=== PATIENT | female | born 1970 | race Caucasian/White ===

== ENCOUNTER → 2016-06-20 | Outpatient (CLI) | payer OTHER | END | disposition home or self-care (01) | LOC: LABWHC1 08:24 | PROVIDERS: ATTEND Internal Medicine | DX: E27.49 Other adrenocortical insufficiency (principal); R53.83 Other fatigue | CPT/HCPCS: 36415; 82533 ==

== ENCOUNTER → 2016-08-24 | Outpatient (CLI) | payer OTHER | END | disposition home or self-care (01) | LOC: LABWHC1 10:16 | PROVIDERS: ATTEND Internal Medicine | DX: E27.49 Other adrenocortical insufficiency (principal) | CPT/HCPCS: 36415; 82533 ==

== ENCOUNTER → 2016-09-26 | Outpatient (CLI) | payer OTHER ==
[2016-09-26 08:14] LABS: Basophils # (A) 0.1 k/uL (0-0.2); Basophils % (A) 1 %; CH 31.5; CHCM 31.2; Eosinophils # (A) 0.3 k/uL (0-0.7); Eosinophils % (A) 2 %; HCT 51.7 % (34.0-46.0); HDW 2.67; Hypochromasia Slight; Luc # (Auto) 0.21; Luc % (Auto) 2; Lymphocytes # (A) 2.7 k/uL (1.0-4.8); Lymphocytes % (A) 26 %; MCH 31.3 pg (25.0-35.0); MCHC 30.9 g/dL (31.0-37.0); MCV 101.3 fL (80.0-100.0); Macrocytosis Slight; Mean Platelet Volume 8.3; Monocytes # (A) 0.5 k/uL (0-1.0); Monocytes % (A) 5 %; Neutrophils # (A) 6.6 k/uL (1.3-7.7); Neutrophils % (A) 64 %; RBC 5.11 m/uL (3.80-5.40); RDW 13.8 % (11.5-15.5); WBC 10.4 k/uL (3.8-10.6); WBC (Perox) 10.34
[2016-09-26 11:22] LABS: ALT 36 U/L (9-52); AST 31 U/L (14-36); Alkaline Phosphatase 84 U/L (38-126); Anion Gap 15 mmol/L; Bilirubin, Delta 0.4 mg/dL (0.0-0.2); Blood Urea Nitrogen 16 mg/dL (7-17); Calcium 9.5 mg/dL (8.4-10.2); Carbon Dioxide 23 mmol/L (22-30); Chloride 104 mmol/L (98-107); Glucose 95 mg/dL (74-99); Non-African American GFR(MDRD) >60 (>60 ml/min/1.73 sqM); Sodium 142 mmol/L (137-145); Total Bilirubin 0.7 mg/dL (0.2-1.3); Total Protein 8.3 g/dL (6.3-8.2)
[2016-09-26 12:08] LABS: Vitamin B12 683 pg/mL (239-931)
[2016-09-26 19:06] LABS: ACTH 29.9 pg/mL (0.00-45.99)
== END ==
LOC: LABWHC1 07:35
PROVIDERS: ATTEND Internal Medicine
DX: E27.49 Other adrenocortical insufficiency (principal); R53.83 Other fatigue; E55.9 Vitamin D deficiency, unspecified
CPT/HCPCS: 36415; 80053; 82024; 82248; 82306; 82533; 82607; 84305; 84439; 84443; 85025

== ENCOUNTER → 2016-12-05 | Outpatient (CLI) | payer OTHER ==
[2016-12-05 08:55] LABS: Basophils # (A) 0.1 k/uL (0-0.2); Basophils % (A) 1 %; CH 32.2; CHCM 32.8; Eosinophils # (A) 0.2 k/uL (0-0.7); Eosinophils % (A) 2 %; HDW 2.72; HGB 14.9 gm/dL (11.4-16.0); Luc % (Auto) 2; Lymphocytes # (A) 2.1 k/uL (1.0-4.8); Lymphocytes % (A) 22 %; MCH 32.1 pg (25.0-35.0); MCHC 32.5 g/dL (31.0-37.0); MCV 98.8 fL (80.0-100.0); Mean Platelet Volume 8.6; Monocytes # (A) 0.5 k/uL (0-1.0); Monocytes % (A) 5 %; Neutrophils # (A) 6.5 k/uL (1.3-7.7); Neutrophils % (A) 68 %; RBC 4.65 m/uL (3.80-5.40); RDW 13.9 % (11.5-15.5); WBC 9.6 k/uL (3.8-10.6); WBC (Perox) 9.45
[2016-12-05 10:58] LABS: ALT 43 U/L (9-52); AST 30 U/L (14-36); Alkaline Phosphatase 79 U/L (38-126); Anion Gap 12 mmol/L; Blood Urea Nitrogen 18 mg/dL (7-17); Calcium 9.7 mg/dL (8.4-10.2); Carbon Dioxide 24 mmol/L (22-30); Chloride 104 mmol/L (98-107); Glucose 106 mg/dL (74-99); Non-African American GFR(MDRD) >60 (>60 ml/min/1.73 sqM); Potassium 3.6 mmol/L (3.5-5.1); Sodium 140 mmol/L (137-145); Total Bilirubin 0.5 mg/dL (0.2-1.3); Total Protein 7.4 g/dL (6.3-8.2)
[2016-12-05 11:45] LABS: Vitamin B12 759 pg/mL (239-931)
[2016-12-05 17:41] LABS: ACTH 14.2 pg/mL (0.00-45.99)
== END | disposition home or self-care (01) ==
LOC: LABWHC1 08:12
PROVIDERS: ATTEND Internal Medicine
DX: R53.83 Other fatigue (principal); E27.49 Other adrenocortical insufficiency; E55.9 Vitamin D deficiency, unspecified
CPT/HCPCS: 36415; 80053; 82024; 82306; 82533; 82607; 84439; 84443; 85025

== ENCOUNTER → 2017-03-20 | Outpatient (CLI) | payer OTHER ==
[2017-03-20 09:09] LABS: Basophils % (A) 1 %; CH 31.6; CHCM 31.8; Eosinophils # (A) 0.2 k/uL (0-0.7); Eosinophils % (A) 3 %; HCT 45.2 % (34.0-46.0); HDW 2.65; HGB 14.5 gm/dL (11.4-16.0); Luc % (Auto) 3; Lymphocytes # (A) 2.6 k/uL (1.0-4.8); Lymphocytes % (A) 34 %; Mean Platelet Volume 8.6; Monocytes # (A) 0.4 k/uL (0-1.0); Monocytes % (A) 5 %; Neutrophils # (A) 4.2 k/uL (1.3-7.7); Neutrophils % (A) 55 %; RBC 4.53 m/uL (3.80-5.40); RDW 13.6 % (11.5-15.5); WBC 7.7 k/uL (3.8-10.6); WBC (Perox) 7.43
[2017-03-20 13:09] LABS: Hemoglobin A1C 5.7 % (4.2-6.1)
[2017-03-20 13:41] LABS: ALT 59 U/L (9-52); AST 26 U/L (14-36); Alkaline Phosphatase 74 U/L (38-126); Anion Gap 11 mmol/L; Blood Urea Nitrogen 21 mg/dL (7-17); Calcium 9.4 mg/dL (8.4-10.2); Carbon Dioxide 23 mmol/L (22-30); Chloride 106 mmol/L (98-107); Cholesterol 169 mg/dL (<200); Glucose 95 mg/dL (74-99); HDL Cholesterol 40 mg/dL (40-60); Non-African American GFR(MDRD) >60 (>60 ml/min/1.73 sqM); Potassium 3.6 mmol/L (3.5-5.1); Sodium 140 mmol/L (137-145); Total Bilirubin 0.5 mg/dL (0.2-1.3); Total Protein 7.1 g/dL (6.3-8.2)
[2017-03-20 15:09] LABS: Vitamin B12 693 pg/mL (239-931)
[2017-03-20 15:14] LABS: DHEA Sulfate 24.9 ug/dL (26.0-430.0)
[2017-03-20 17:17] LABS: ACTH 7.85 pg/mL (0.00-45.99)
[2017-03-26 07:47] LABS: Mis test requested (Blood) Prolactin Dilution
== END | disposition home or self-care (01) ==
LOC: LABWHC1 08:08
PROVIDERS: ATTEND Internal Medicine
DX: E23.0 Hypopituitarism (principal)
CPT/HCPCS: 36415; 80053; 80061; 82024; 82306; 82533; 82607; 82627; 82670; 83001; 83002; 83036; 84146; 84305; 84402; 84403; 84439; 84443; 84480; 85025

== ENCOUNTER 2017-05-09 00:24 | Emergency (ER) | payer OTHER ==
[2017-05-09 01:20] LABS: Appearance,Urine Clear (Clear); Bilirubin,Urine Negative (Negative); Glucose,Urine (UA) Negative (Negative); Ketones,Urine Negative (Negative); Leukocyte Esterase,Urine Negative (Negative); Nitrite,Urine Negative (Negative); PH, Urine 6.5 (5.0-8.0); Protein,Urine Negative (Negative); Specific Gravity,Urine 1.018 (1.001-1.035); UA Billing (MACRO vs. MICRO) CHEM; Urobilinogen,Urine <2.0 mg/dL (<2.0)
[2017-05-09 01:21] LABS: Basophils % (A) 1 %; CH 31.5; Eosinophils # (A) 0.3 k/uL (0-0.7); Eosinophils % (A) 3 %; HCT 43.4 % (34.0-46.0); HDW 2.56; Luc # (Auto) 0.14; Luc % (Auto) 2; Lymphocytes # (A) 2.4 k/uL (1.0-4.8); Lymphocytes % (A) 29 %; MCH 31.9 pg (25.0-35.0); MCHC 32.2 g/dL (31.0-37.0); MCV 98.9 fL (80.0-100.0); Mean Platelet Volume 9.7; Monocytes # (A) 0.4 k/uL (0-1.0); Monocytes % (A) 5 %; Neutrophils % (A) 60 %; RBC 4.39 m/uL (3.80-5.40); RDW 14.6 % (11.5-15.5); WBC 8.3 k/uL (3.8-10.6); WBC (Perox) 8.98
[2017-05-09 01:37] LABS: ALT 51 U/L (9-52); AST 25 U/L (14-36); Alkaline Phosphatase 62 U/L (38-126); Amylase 39 U/L (30-110); Anion Gap 8 mmol/L; Blood Urea Nitrogen 18 mg/dL (7-17); Calcium 9.1 mg/dL (8.4-10.2); Carbon Dioxide 21 mmol/L (22-30); Chloride 110 mmol/L (98-107); Glucose 91 mg/dL (74-99); Non-African American GFR(MDRD) 59 (>60 ml/min/1.73 sqM); Sodium 139 mmol/L (137-145); Total Bilirubin 0.2 mg/dL (0.2-1.3); Total Protein 6.9 g/dL (6.3-8.2)
[2017-05-09 01:44] LABS: C Reactive Protein 8.6 mg/L (<10.0); Potassium 3.7 mmol/L (3.5-5.1)
[2017-05-09 02:34] VITALS: BP 91/52; PULSE 61; RESP 18; TEMP 96.2
--- NOTE | 2017-05-09 02:42 | CT ---
EXAMINATION TYPE: CT abdomen pelvis wo con DATE OF EXAM: 05/09/2017 COMPARISON: NONE HISTORY: abdominal pain/back pain X2 CT DLP: 1310.40 mGycm Automated exposure control for dose reduction was used. TECHNIQUE: Helical acquisition of images was performed from the lung bases through the pelvis. FINDINGS: The lung bases are clear of infiltrate. There is no pleural effusion. Liver spleen pancreas appear no rmal. Gallbladder is contracted. Bile ducts are not dilated. There is no adrenal mass. Kidneys have normal size and contour. There is no hydronephrosis. Ureters are not dilated. There is a pparent shunt catheter in the left side of the abdomen. There is no ascites. Bladder distends smoothly. There is no sign of a pelvic mass. I see no bony destructive process. Ther e is no intestinal wall thickening. There are no dilated loops. Appendix appears normal. IMPRESSION: NEGATIVE CT SCAN OF THE ABDOMEN AND PELVIS. I DO NOT SEE A CAUSE FOR ABDOMINAL PAIN.
--- NOTE | 2017-05-09 02:51 | ED ---
Abdominal Pain HPI - General Chief Complaint: Abdominal Pain Stated Complaint: abd pain Time Seen by Provider: 05/09/17 00:39 Source: patient Mode of arrival: ambulatory Limitations: no limitations - History of Present Illness Initial Comments: Patient's 47-year-old woman who presents with nearly couple months of lower abdominal pains and she has now developed some diarrhea associated. Patient denies bright red blood or melena. She has not noted fever or chills. No vomiting. No chest symptoms no change in urination MD Complaint: abdominal pain -: week(s) Location: LLQ, RLQ, suprapubic Radiation: none Migration to: no migration Severity: moderate Quality: aching Consistency: constant Improves With: nothing Worsens With: nothing Associated Symptoms: diarrhea - Related Data Home Medications Medication Instructions Recorded Confirmed Cetirizine HCl [Zyrtec] 10 mg PO DAILY 10/14/13 05/29/17 Diazepam [Valium] 5 mg PO DIRECTED PRN 10/14/13 05/29/17 Escitalopram [Lexapro] 10 mg PO DAILY 10/14/13 05/29/17 Esomeprazole Magnesium [NexIUM] 40 mg PO DAILY 10/14/13 05/29/17 Fluticasone/Salmeterol [Advair 1 puff INHALATION Q12HR PRN 10/14/13 05/29/17 100-50 Diskus] Folic Acid 1 mg PO DAILY 10/14/13 05/29/17 Meclizine [Antivert] 1 caplet PO BID 10/14/13 05/29/17 Metoprolol Succinate [Toprol XL] 50 mg PO DAILY 10/14/13 05/29/17 Multivitamin [Multivitamins] 1 each PO DIRECTED 10/14/13 05/29/17 [place] Oil 1 caplet PO BID 10/14/13 05/29/17 Tiotropium 18 Mcg/Puff [Spiriva] 1 puff INHALATION DIRECTED 10/14/13 05/29/17 Topiramate [Topamax] 100 mg PO BID 10/14/13 05/29/17 Triamterene-Hctz 37.5-25Mg 1 each PO DAILY 10/14/13 05/29/17 [Dyazide 37.5-25 Capsule] Xolair 225 mg SQ DIRECTED 10/14/13 05/29/17 Zafirlukast [Accolate] 20 mg PO BID 10/14/13 05/29/17 clonazePAM [KlonoPIN] 1 mg PO DAILY 10/14/13 05/29/17 HYDROcodone/APAP 7.5-325MG [Brainard 7.5 mg PO DIRECTED PRN 11/13/13 05/29/17 7.5-325] Potassium Chloride 8 meq PO DAILY 08/06/14 05/29/17 Hydrocortisone [Cortef] 5 mg PO TID 09/02/15 05/29/17 Levothyroxine Sodium [Synthroid] 100 mcg PO DAILY 06/29/16 05/29/17 Phentermine HCl [Adipex-P] 37.5 mg PO QAM 06/29/16 05/29/17 metFORMIN HCL [Glucophage] 500 mg PO BID 01/16/17 05/29/17 Allergies Allergy/AdvReac Type Severity Reaction Status Date / Time iodine Allergy Severe Anaphylaxis Verified 05/29/17 11:28 diltiazem HCl [From Cardizem] Allergy Rash/Hives Verified 05/29/17 11:28 levetiracetam [From Keppra] Allergy Rash/Hives Verified 05/29/17 11:28 midodrine HCl Allergy Unknown Verified 05/29/17 11:28 [From ProAmatine] paroxetine HCl [From Paxil] Allergy Rash/Hives Verified 05/29/17 11:28 Sulfa (Sulfonamide Allergy Unknown Verified 05/29/17 11:28 Antibiotics) Review of Systems ROS Statement: Those systems with pertinent positive or pertinent negative responses have been documented in the HPI. ROS Other: All systems not noted in ROS Statement are negative. Constitutional: Denies: fever, chills Respiratory: Denies: cough, dyspnea Cardiovascular: Denies: chest pain, palpitations, edema Gastrointestinal: Reports: abdominal pain, diarrhea. Denies: nausea, vomiting, constipation, melena, hematochezia Genitourinary: Denies: dysuria, hematuria Musculoskeletal: Denies: back pain Skin: Denies: rash Neurological: Denies: headache Past Medical History Past Medical History: Asthma, Chest Pain / Angina, Fibromyalgia, GERD/Reflux, Hearing Disorder / Deafness, Seizure Disorder Additional Past Medical History / Comment(s): MENIERES/LEGALLY BLIND/DEAFNESS LT EAR/DIFF HEARING RT/RT HEARING AID/HYPOGLYCEMIA/MIGRAINE/POOR CIRCULATION/ VARICOSE VIENS/HYPOKALEMIA/TACHYCARDIA/SINUS PROBLEMS/IRRITABLE BOWEL SYNDROME/ HIATALHERNIA. Adrenal insufficiency/ kelby's dis, thyroid issues History of Any Multi-Drug Resistant Organisms: None Reported Past Surgical History: Ear Surgery Additional Past Surgical History / Comment(s): SHUNT TO RT SIDE OF HEAD D/T HYDROCEPHALUS/BILAT CATARACT REMOVED, EGD/COLONOSCOPY Past Anesthesia/Blood Transfusion Reactions: Previous Problems w/ Anesthesia, Motion Sickness Past Psychological History: Anxiety, Depression Smoking Status: Never smoker General Exam Limitations: no limitations General appearance: alert, in no apparent distress, obese Head exam: Present: atraumatic, normocephalic Eye exam: Present: normal appearance. Absent: scleral icterus, conjunctival injection Respiratory exam: Present: normal lung sounds bilaterally. Absent: respiratory distress, wheezes, rales, rhonchi, stridor Cardiovascular Exam: Present: regular rate, normal rhythm, normal heart sounds. Absent: systolic murmur, diastolic murmur, rubs, gallop GI/Abdominal exam: Present: soft, tenderness (There is mild lower abdominal tenderness without rebound or guarding). Absent: distended, guarding, rebound, mass, pulsatile mass Extremities exam: Present: normal inspection, normal capillary refill. Absent: pedal edema, calf tenderness Back exam: Present: normal inspection. Absent: CVA tenderness (R), CVA tenderness (L) Neurological exam: Present: alert Skin exam: Present: warm, dry, intact, normal color. Absent: rash Course Vital Signs 05/09/17 05/09/17 00:30 02:29 Temperature 97.2 F L 96.2 F L Pulse Rate 63 61 Respiratory 16 18 Rate Blood Pressure 114/57 91/52 O2 Sat by Pulse 100 97 Oximetry Medical Decision Making - Medical Decision Making This patient is a 47-year-old woman who is having a couple of months almost of lower abdominal pain and recently diarrhea. Her labs were unremarkable, but given the duration of symptoms, the patient did press for imaging and she does have some tenderness as well so CT was ordered which is unremarkable. Will have patient follow up with gastroenterology for endoscopy/ colonoscopy. We did discuss return parameters and appropriate follow-up - Lab Data Result diagrams: 05/09/17 01:08 05/09/17 01:08 Lab Results 05/09/17 05/09/17 05/09/17 Range/Units 01:08 01:08 01:08 WBC 8.3 (3.8-10.6) k/uL RBC 4.39 (3.80-5.40) m/uL Hgb 14.0 (11.4-16.0) gm/dL Hct 43.4 (34.0-46.0) % MCV 98.9 (80.0-100.0) fL MCH 31.9 (25.0-35.0) pg MCHC 32.2 (31.0-37.0) g/dL RDW 14.6 (11.5-15.5) % Plt Count 170 (150-450) k/uL Neutrophils % 60 % Lymphocytes % 29 % Monocytes % 5 % Eosinophils % 3 % Basophils % 1 % Neutrophils # 5.0 (1.3-7.7) k/uL Lymphocytes # 2.4 (1.0-4.8) k/uL Monocytes # 0.4 (0-1.0) k/uL Eosinophils # 0.3 (0-0.7) k/uL Basophils # 0.0 (0-0.2) k/uL Sodium 139 (137-145) mmol/L Potassium 3.7 (3.5-5.1) mmol/L Chloride 110 H (98-107) mmol/L Carbon Dioxide 21 L (22-30) mmol/L Anion Gap 8 mmol/L BUN 18 H (7-17) mg/dL Creatinine 1.00 (0.52-1.04) mg/dL Est GFR (MDRD) Af Amer >60 (>60 ml/min/1.73 sqM) Est GFR (MDRD) Non-Af 59 (>60 ml/min/1.73 sqM) Glucose 91 (74-99) mg/dL Calcium 9.1 (8.4-10.2) mg/dL Total Bilirubin 0.2 (0.2-1.3) mg/dL AST 25 (14-36) U/L ALT 51 (9-52) U/L Alkaline Phosphatase 62 (38-126) U/L C-Reactive Protein 8.6 (<10.0) mg/L Total Protein 6.9 (6.3-8.2) g/dL Albumin 3.9 (3.5-5.0) g/dL Amylase 39 (30-110) U/L Lipase 168 (23-300) U/L Urine Color Yellow Urine Appearance Clear (Clear) Urine pH 6.5 (5.0-8.0) Ur Specific [place] 1.018 (1.001-1.035) Urine Protein Negative (Negative) Urine Glucose (UA) Negative (Negative) Urine Ketones Negative (Negative) Urine Blood Negative (Negative) Urine Nitrite Negative (Negative) Urine Bilirubin Negative (Negative) Urine Urobilinogen <2.0 (<2.0) mg/dL Ur Leukocyte Esterase Negative (Negative) Disposition Clinical Impression: Abdominal pain Disposition: HOME SELF-CARE Condition: Good Instructions: Abdominal Pain (ED) Referrals: Ibrahima Smith DO [Primary Care Provider] - 1-2 days Gifty Claros MD [STAFF PHYSICIAN] - 1-2 days
== END 2017-05-09 03:02 | disposition home or self-care (01) ==
LOC: EC 00:24
DX: R10.31 Right lower quadrant pain (principal); R10.32 Left lower quadrant pain; R19.7 Diarrhea, unspecified; J45.909 Unspecified asthma, uncomplicated; K21.9 Gastro-esophageal reflux disease without esophagitis; G40.909 Epilepsy, unspecified, not intractable, without status epilepticus; E87.6 Hypokalemia; E07.9 Disorder of thyroid, unspecified; F32.9 Major depressive disorder, single episode, unspecified; F41.9 Anxiety disorder, unspecified; E66.9 Obesity, unspecified; Z79.52 Long term (current) use of systemic steroids; Z79.84 Long term (current) use of oral hypoglycemic drugs; Z79.899 Other long term (current) drug therapy; Z86.39 Personal history of other endocrine, nutritional and metabolic disease; Z86.79 Personal history of other diseases of the circulatory system; Z68.41 Body mass index [BMI] 40.0-44.9, adult
CPT/HCPCS: 36415; 74176; 80053; 81003; 82150; 83690; 85025; 86140; 99284

== ENCOUNTER → 2017-07-24 | Outpatient (CLI) | payer OTHER ==
[2017-07-24 09:03] LABS: Basophils # (A) 0.1 k/uL (0-0.2); Basophils % (A) 0 %; Eosinophils # (A) 0.1 k/uL (0-0.7); Eosinophils % (A) 1 %; HCT 41.1 % (34.0-46.0); HGB 13.3 gm/dL (11.4-16.0); Lymphocytes # (A) 2.3 k/uL (1.0-4.8); Lymphocytes % (A) 17 %; MCHC 32.2 g/dL (31.0-37.0); MCV 99.2 fL (80.0-100.0); Mean Platelet Volume 8.8; Monocytes # (A) 0.5 k/uL (0-1.0); Monocytes % (A) 4 %; Neutrophils # (A) 10.6 k/uL (1.3-7.7); Neutrophils % (A) 77 %; Platelet Count 197 k/uL (150-450); RBC 4.15 m/uL (3.80-5.40); RDW 13.5 % (11.5-15.5); WBC 13.7 k/uL (3.8-10.6)
[2017-07-24 10:22] LABS: ALT 37 U/L (9-52); AST 18 U/L (14-36); Albumin 3.8 g/dL (3.5-5.0); Alkaline Phosphatase 63 U/L (38-126); Anion Gap 11 mmol/L; Blood Urea Nitrogen 22 mg/dL (7-17); Calcium 9.1 mg/dL (8.4-10.2); Carbon Dioxide 23 mmol/L (22-30); Chloride 109 mmol/L (98-107); Cholesterol 157 mg/dL (<200); Glucose 103 mg/dL (74-99); HDL Cholesterol 49 mg/dL (40-60); LDL Cholesterol,Calculated 81 mg/dL (0-99); Sodium 143 mmol/L (137-145); Total Bilirubin 0.2 mg/dL (0.2-1.3); Total Protein 6.8 g/dL (6.3-8.2); Triglycerides 134 mg/dL (<150)
[2017-07-24 10:39] LABS: T4, Free (Free Thyroxine) 0.73 ng/dL (0.78-2.19)
[2017-07-24 15:52] LABS: DHEA Sulfate 8.9 ug/dL (26.0-430.0)
[2017-07-24 15:58] LABS: Vitamin D 25 Hydroxy 36.5 ng/mL (30.0-100.0)
[2017-07-24 18:30] LABS: ACTH <5.00 pg/mL (0.00-45.99)
[2017-07-24 20:47] LABS: Hemoglobin A1C 5.6 % (4.0-6.0)
== END | disposition home or self-care (01) ==
LOC: LABWHC1 08:26
PROVIDERS: ATTEND Internal Medicine
DX: E23.0 Hypopituitarism (principal)
CPT/HCPCS: 36415; 80053; 80061; 82024; 82306; 82533; 82607; 82627; 82670; 83001; 83002; 83036; 84146; 84305; 84402; 84403; 84439; 84443; 84480; 85025

== ENCOUNTER → 2017-09-18 | Outpatient (CLI) | payer OTHER ==
[2017-09-18 11:13] LABS: Albumin 4.1 g/dL (3.5-5.0); Bilirubin, Delta 0.4 mg/dL (0.0-0.2); Calcium 9.4 mg/dL (8.4-10.2); Total Bilirubin 0.4 mg/dL (0.2-1.3); Total Protein 7.3 g/dL (6.3-8.2)
[2017-09-18 11:14] LABS: HCT 46.6 % (34.0-46.0); HGB 14.9 gm/dL (11.4-16.0); MCH 30.2 pg (25.0-35.0); MCHC 31.9 g/dL (31.0-37.0); MCV 94.6 fL (80.0-100.0); Mean Platelet Volume 9.3; Platelet Count 229 k/uL (150-450); RBC 4.92 m/uL (3.80-5.40); RDW 12.9 % (11.5-15.5); WBC 6.8 k/uL (3.8-10.6)
[2017-09-18 11:22] LABS: Potassium 2.9 mmol/L (3.5-5.1)
== END | disposition home or self-care (01) ==
LOC: LABWHC1 10:31
PROVIDERS: ATTEND Psychiatry & Neurology Clinical Neurophysiology
DX: M19.90 Unspecified osteoarthritis, unspecified site (principal); D64.9 Anemia, unspecified; K76.9 Liver disease, unspecified; R56.9 Unspecified convulsions; Z79.899 Other long term (current) drug therapy
CPT/HCPCS: 36415; 80048; 80076; 80201; 85027

== ENCOUNTER → 2017-11-19 | Outpatient (CLI) | payer OTHER ==
[2017-11-19 08:40] LABS: Basophils # (A) 0.1 k/uL (0-0.2); Basophils % (A) 1 %; Eosinophils # (A) 0.2 k/uL (0-0.7); Eosinophils % (A) 3 %; HCT 44.4 % (34.0-46.0); HGB 14.5 gm/dL (11.4-16.0); Lymphocytes # (A) 1.9 k/uL (1.0-4.8); Lymphocytes % (A) 30 %; MCH 31.5 pg (25.0-35.0); MCHC 32.7 g/dL (31.0-37.0); MCV 96.3 fL (80.0-100.0); Mean Platelet Volume 8.2; Monocytes # (A) 0.5 k/uL (0-1.0); Monocytes % (A) 8 %; Neutrophils # (A) 3.5 k/uL (1.3-7.7); Neutrophils % (A) 56 %; Platelet Count 188 k/uL (150-450); RBC 4.62 m/uL (3.80-5.40); RDW 13.6 % (11.5-15.5); WBC 6.3 k/uL (3.8-10.6)
[2017-11-19 08:47] LABS: Calcium 9.3 mg/dL (8.4-10.2); Potassium 3.6 mmol/L (3.5-5.1); Total Bilirubin 0.3 mg/dL (0.2-1.3); Total Protein 6.9 g/dL (6.3-8.2)
[2017-11-19 08:59] LABS: T4, Free (Free Thyroxine) 0.96 ng/dL (0.78-2.19)
[2017-11-19 16:56] LABS: Vitamin D 25 Hydroxy 33.4 ng/mL (30.0-100.0)
[2017-11-19 16:58] LABS: DHEA Sulfate 21.9 ug/dL (26.0-430.0)
[2017-11-19 18:20] LABS: Hemoglobin A1C 5.9 % (4.0-6.0)
[2017-11-19 19:44] LABS: ACTH 6.01 pg/mL (0.00-45.99)
== END | disposition home or self-care (01) ==
LOC: LABWHC1 07:50
PROVIDERS: ATTEND Internal Medicine
DX: E23.0 Hypopituitarism (principal)
CPT/HCPCS: 36415; 80053; 80061; 82024; 82306; 82533; 82607; 82627; 82670; 83001; 83002; 83036; 84146; 84305; 84402; 84403; 84439; 84443; 84480; 85025

== ENCOUNTER → 2018-02-26 | Outpatient (CLI) | payer OTHER ==
[2018-02-26 08:46] LABS: Basophils % (A) 1 %; Eosinophils # (A) 0.2 k/uL (0-0.7); Eosinophils % (A) 3 %; HGB 14.2 gm/dL (11.4-16.0); Hypochromasia Slight; Lymphocytes # (A) 2.3 k/uL (1.0-4.8); Lymphocytes % (A) 38 %; MCH 30.4 pg (25.0-35.0); MCHC 30.8 g/dL (31.0-37.0); MCV 98.8 fL (80.0-100.0); Mean Platelet Volume 8.5; Monocytes # (A) 0.5 k/uL (0-1.0); Monocytes % (A) 8 %; Neutrophils # (A) 2.9 k/uL (1.3-7.7); Neutrophils % (A) 49 %; Platelet Count 200 k/uL (150-450); RBC 4.66 m/uL (3.80-5.40); RDW 13.8 % (11.5-15.5)
[2018-02-26 16:06] LABS: Calcium 9.5 mg/dL (8.4-10.2); Potassium 3.8 mmol/L (3.5-5.1); Total Bilirubin 0.3 mg/dL (0.2-1.3); Total Protein 7.2 g/dL (6.3-8.2)
[2018-02-26 16:08] LABS: DHEA Sulfate 21.2 ug/dL (26.0-430.0)
[2018-02-26 16:19] LABS: T4, Free (Free Thyroxine) 1.08 ng/dL (0.78-2.19)
[2018-02-26 19:16] LABS: ACTH 8.03 pg/mL (0.00-45.99)
[2018-02-26 20:05] LABS: Hemoglobin A1C 5.8 % (4.0-6.0)
== END | disposition home or self-care (01) ==
LOC: LABWHC1 08:06
PROVIDERS: ATTEND Internal Medicine
DX: E23.0 Hypopituitarism (principal); E03.9 Hypothyroidism, unspecified; E55.9 Vitamin D deficiency, unspecified
CPT/HCPCS: 36415; 80053; 80061; 82024; 82306; 82533; 82627; 82670; 83001; 83002; 83036; 84146; 84305; 84402; 84403; 84439; 84443; 84481; 85025

== ENCOUNTER → 2018-04-09 | Outpatient (CLI) | payer OTHER ==
[2018-04-09 10:12] LABS: Basophils % (A) 0 %; Eosinophils # (A) 0.2 k/uL (0-0.7); Eosinophils % (A) 2 %; HCT 45.9 % (34.0-46.0); HGB 14.8 gm/dL (11.4-16.0); Lymphocytes # (A) 3.3 k/uL (1.0-4.8); Lymphocytes % (A) 40 %; MCH 31.2 pg (25.0-35.0); MCHC 32.2 g/dL (31.0-37.0); MCV 96.8 fL (80.0-100.0); Mean Platelet Volume 8.7; Monocytes # (A) 0.6 k/uL (0-1.0); Monocytes % (A) 7 %; Neutrophils # (A) 4.1 k/uL (1.3-7.7); Neutrophils % (A) 49 %; Platelet Count 191 k/uL (150-450); RBC 4.74 m/uL (3.80-5.40); RDW 13.7 % (11.5-15.5); WBC 8.4 k/uL (3.8-10.6)
[2018-04-09 12:09] LABS: Erythrocyte Sedimentation Rate 10 mm/hr (0-20)
[2018-04-09 13:02] LABS: Albumin 4.2 g/dL (3.5-5.0); C Reactive Protein 6.3 mg/L (<10.0); Calcium 9.6 mg/dL (8.4-10.2); Potassium 4.1 mmol/L (3.5-5.1); Total Bilirubin 0.6 mg/dL (0.2-1.3); Total Protein 7.7 g/dL (6.3-8.2)
--- NOTE | 2018-04-09 14:36 | US ---
EXAMINATION TYPE: US pelvic complete DATE OF EXAM: 04/09/2018 COMPARISON: CT 2017 CLINICAL HISTORY: Pelvic Pain R10.2, N89.8. Intermittent pelvic pain x couple years, 0 TECHNIQUE: . Transabdominal sonographic images of the pelvis were acquired. Date of LMP: 03/20/2018 EXAM MEASUREMENTS: Uterus: 7.8 x 3.7 x 3.9 cm Endometrial Stripe: 0.7 cm Right Ovary: 2.7 x 1.2 x 1.6 cm Left Ovary: 3.1 x 2.9 x 2.0 cm 1. Uterus: anteverted, heterogeneous 2. Endometrium: wnl 3. Right Ovary: wnl 4. Left Ovary: wnl 5. Bilateral Adnexa: wnl 6. Posterior cul-de-sac: wnl IMPRESSION: No significant abnormality is evident
[2018-04-09 17:52] LABS: Cyclic Citrullinated Pep IgG NEGATIVE (NEGATIVE)
[2018-04-09 18:06] LABS: Rheumatoid Factor 6 IU/mL (0-15)
== END | disposition home or self-care (01) ==
LOC: RADUSWWP 08:34
PROVIDERS: ATTEND Family Medicine
DX: R10.2 Pelvic and perineal pain (principal); R53.83 Other fatigue; E27.40 Unspecified adrenocortical insufficiency
CPT/HCPCS: 36415; 76856; 80053; 82533; 84443; 85025; 85652; 86038; 86140; 86200; 86431

== ENCOUNTER → 2018-05-21 | Outpatient (CLI) | payer OTHER ==
[2018-05-21 08:41] LABS: HCT 45.8 % (34.0-46.0); HGB 14.1 gm/dL (11.4-16.0); MCH 30.4 pg (25.0-35.0); MCHC 30.9 g/dL (31.0-37.0); MCV 98.4 fL (80.0-100.0); Platelet Count 231 k/uL (150-450); RBC 4.66 m/uL (3.80-5.40); RDW 13.7 % (11.5-15.5); WBC 9.9 k/uL (3.8-10.6)
[2018-05-21 15:58] LABS: Albumin 4.2 g/dL (3.80-4.90); Anion Gap 7.6 mmol/L (4.00-12.00); Bilirubin, Conjugated 0.2 mg/dL (0.20-0.40); Bilirubin,Unconjugated 0.4 mg/dL; Calcium 9.2 mg/dL (8.7-10.3); Carbon Dioxide 27.4 mmol/L (21.6-31.8); Globulin 2.1 g/dL (2.1-3.7); LDL Cholesterol,Calculated 86.2 mg/dL (0.0-131.0); Potassium 3.7 mmol/L (3.5-5.5); Total Bilirubin 0.6 mg/dL (0.3-1.2); Total Protein 6.3 g/dL (6.2-8.2); VLDL Calculation 28.8 mg/dL (5.00-40.00)
[2018-05-21 16:07] LABS: T4, Free (Free Thyroxine) 1.1 ng/dL (0.80-1.80)
[2018-05-21 18:46] LABS: Hemoglobin A1C 6.2 % (4.0-6.0)
[2018-05-22 11:23] LABS: Topiramate 14.4 ug/mL (2.0-20.0)
== END ==
LOC: LABWHC1 08:06
PROVIDERS: ATTEND Psychiatry & Neurology Clinical Neurophysiology
DX: E27.49 Other adrenocortical insufficiency (principal); E23.0 Hypopituitarism; E03.9 Hypothyroidism, unspecified; R73.03 Prediabetes; D64.9 Anemia, unspecified; G40.419 Other generalized epilepsy and epileptic syndromes, intractable, without status epilepticus; Z51.81 Encounter for therapeutic drug level monitoring
CPT/HCPCS: 36415; 80053; 80061; 80201; 82248; 82533; 83036; 84305; 84439; 84443; 84480; 85027

== ENCOUNTER → 2018-09-10 | Outpatient (CLI) | payer OTHER ==
[2018-09-10 08:56] LABS: Basophils # (A) 0.1 k/uL (0-0.2); Basophils % (A) 1 %; Eosinophils # (A) 0.3 k/uL (0-0.7); Eosinophils % (A) 4 %; HCT 46.9 % (34.0-46.0); HGB 14.8 gm/dL (11.4-16.0); Lymphocytes # (A) 2.4 k/uL (1.0-4.8); Lymphocytes % (A) 35 %; MCH 31.2 pg (25.0-35.0); MCHC 31.5 g/dL (31.0-37.0); Monocytes # (A) 0.4 k/uL (0-1.0); Monocytes % (A) 5 %; Neutrophils # (A) 3.5 k/uL (1.3-7.7); Neutrophils % (A) 52 %; Platelet Count 224 k/uL (150-450); RBC 4.73 m/uL (3.80-5.40); RDW 14.3 % (11.5-15.5); WBC 6.7 k/uL (3.8-10.6)
[2018-09-10 18:11] LABS: Vitamin D 25 Hydroxy 49.5 ng/mL (30.0-100.0)
[2018-09-10 18:13] LABS: Albumin 4.5 g/dL (3.80-4.90); Albumin/Globulin Ratio 1.8 (1.60-3.17); Anion Gap 9.9 mmol/L (4.00-12.00); Calcium 9.4 mg/dL (8.7-10.3); Carbon Dioxide 28.1 mmol/L (21.6-31.8); Globulin 2.5 g/dL (1.6-3.3); LDL Cholesterol,Calculated 68.2 mg/dL (0.0-131.0); Potassium 3.5 mmol/L (3.5-5.5); Total Bilirubin 0.5 mg/dL (0.3-1.2); VLDL Calculation 25.8 mg/dL (5.00-40.00)
[2018-09-10 18:21] LABS: T4, Free (Free Thyroxine) 1.2 ng/dL (0.80-1.80)
[2018-09-10 21:02] LABS: ACTH 13.2 pg/mL (0.00-45.99)
[2018-09-10 21:17] LABS: Hemoglobin A1C 5.9 % (4.0-6.0)
== END | disposition home or self-care (01) ==
LOC: LABWHC1 08:00
PROVIDERS: ATTEND Internal Medicine
DX: E27.49 Other adrenocortical insufficiency (principal); E23.0 Hypopituitarism; R53.83 Other fatigue; E03.9 Hypothyroidism, unspecified; R73.03 Prediabetes; R73.09 Other abnormal glucose
CPT/HCPCS: 36415; 80053; 80061; 82024; 82306; 82533; 82607; 83036; 84305; 84439; 84443; 84481; 85025

== ENCOUNTER → 2019-01-14 | Outpatient (CLI) | payer OTHER ==
[2019-01-14 08:43] LABS: Basophils # (A) 0.1 k/uL (0-0.2); Basophils % (A) 1 %; Eosinophils # (A) 0.2 k/uL (0-0.7); Eosinophils % (A) 2 %; HCT 45.9 % (34.0-46.0); HGB 14.5 gm/dL (11.4-16.0); Lymphocytes # (A) 3.5 k/uL (1.0-4.8); Lymphocytes % (A) 37 %; MCH 31.7 pg (25.0-35.0); MCHC 31.6 g/dL (31.0-37.0); MCV 100.4 fL (80.0-100.0); Macrocytosis Slight; Mean Platelet Volume 9.2; Monocytes # (A) 0.4 k/uL (0-1.0); Monocytes % (A) 5 %; Neutrophils % (A) 54 %; Platelet Count 206 k/uL (150-450); RBC 4.57 m/uL (3.80-5.40); RDW 14.8 % (11.5-15.5); WBC 9.3 k/uL (3.8-10.6)
[2019-01-14 16:26] LABS: African American GFR (CKD) 77.2 (60.0-200.0); Albumin 4.1 g/dL (3.80-4.90); Albumin/Globulin Ratio 1.95 (1.60-3.17); Anion Gap 10.1 mmol/L (4.00-12.00); Calcium 8.9 mg/dL (8.7-10.3); Carbon Dioxide 24.9 mmol/L (21.6-31.8); Chol/HDL Ratio 2.85; Globulin 2.1 g/dL (1.6-3.3); Non-African American GFR(CKD) 66.6 (60.0-200.0); Potassium 3.6 mmol/L (3.5-5.5); Total Bilirubin 0.3 mg/dL (0.2-1.2); Total Protein 6.2 g/dL (6.2-8.2)
[2019-01-14 16:29] LABS: Vitamin D 25 Hydroxy 36.2 ng/mL (30.0-100.0)
[2019-01-14 16:33] LABS: T4, Free (Free Thyroxine) 1.2 ng/dL (0.80-1.80)
[2019-01-14 16:35] LABS: ACTH 6.85 pg/mL (0.00-45.99)
[2019-01-14 17:47] LABS: Hemoglobin A1C 5.9 % (4.0-6.0)
[2019-01-15 09:09] LABS: Topiramate 13.6 ug/mL (2.0-20.0)
== END | disposition home or self-care (01) ==
LOC: LABWHC1 08:09
PROVIDERS: ATTEND Internal Medicine
DX: E27.49 Other adrenocortical insufficiency (principal); E23.0 Hypopituitarism; R53.83 Other fatigue; E55.9 Vitamin D deficiency, unspecified; R73.03 Prediabetes; D50.9 Iron deficiency anemia, unspecified; R94.5 Abnormal results of liver function studies; R94.4 Abnormal results of kidney function studies; G40.89 Other seizures; Z51.81 Encounter for therapeutic drug level monitoring
CPT/HCPCS: 36415; 80053; 80061; 80201; 82024; 82306; 82533; 82607; 83036; 84305; 84439; 84443; 85025

== ENCOUNTER → 2019-04-01 | Outpatient (CLI) | payer OTHER ==
--- NOTE | 2019-04-03 11:04 | MM ---
Reason for exam: screening (asymptomatic). Last mammogram was performed 10 years ago. History: Family history of breast cancer in aunt and breast cancer in cousin. Physical Findings: A clinical breast exam by your physician is recommended on an annual basis and results should be correlated with mammographic findings. MG 3D Screening Mammo W/Cad Bilateral CC and MLO view(s) were taken. Prior study comparison: April 08, 2009, bilateral digital screening mammogram. There are scattered fibroglandular densities. No significant changes when compared with prior studies. ASSESSMENT: Benign, BI-RAD 2 RECOMMENDATION: Routine screening mammogram of both breasts in 1 year.
== END | disposition home or self-care (01) ==
LOC: RADMAMWWP 12:03
PROVIDERS: ATTEND Family Medicine
DX: Z12.31 Encounter for screening mammogram for malignant neoplasm of breast (principal)
CPT/HCPCS: 77063; 77067

== ENCOUNTER → 2019-05-06 | Outpatient (CLI) | payer OTHER ==
[2019-05-06 09:04] LABS: Basophils # (A) 0.1 k/uL (0-0.2); Basophils % (A) 1 %; Eosinophils # (A) 0.3 k/uL (0-0.7); Eosinophils % (A) 4 %; HCT 43.2 % (34.0-46.0); HGB 14.1 gm/dL (11.4-16.0); Lymphocytes # (A) 3.2 k/uL (1.0-4.8); Lymphocytes % (A) 36 %; MCH 32.2 pg (25.0-35.0); MCHC 32.5 g/dL (31.0-37.0); MCV 99.1 fL (80.0-100.0); Mean Platelet Volume 8.4; Monocytes # (A) 0.5 k/uL (0-1.0); Monocytes % (A) 6 %; Neutrophils # (A) 4.7 k/uL (1.3-7.7); Neutrophils % (A) 52 %; Platelet Count 201 k/uL (150-450); RBC 4.36 m/uL (3.80-5.40); RDW 13.1 % (11.5-15.5)
[2019-05-06 16:07] LABS: Albumin/Globulin Ratio 1.82 (1.60-3.17); Anion Gap 10.1 mmol/L (4.00-12.00); Calcium 8.8 mg/dL (8.7-10.3); Carbon Dioxide 24.9 mmol/L (21.6-31.8); Chol/HDL Ratio 3.23; Globulin 2.2 g/dL (1.6-3.3); Non-African American GFR(CKD) 75.1 (60.0-200.0); Potassium 3.5 mmol/L (3.5-5.5); Total Bilirubin 0.4 mg/dL (0.2-1.2); Total Protein 6.2 g/dL (6.2-8.2)
[2019-05-06 16:15] LABS: T4, Free (Free Thyroxine) 1.2 ng/dL (0.80-1.80)
== END | disposition home or self-care (01) ==
LOC: LABWHC1 08:20
PROVIDERS: ATTEND Internal Medicine
DX: E23.0 Hypopituitarism (principal); E27.49 Other adrenocortical insufficiency; R53.83 Other fatigue; E55.9 Vitamin D deficiency, unspecified
CPT/HCPCS: 36415; 80053; 80061; 82024; 82306; 82533; 82607; 84305; 84439; 84443; 85025

== ENCOUNTER 2019-09-07 15:35 | Emergency (ER) | payer OTHER ==
[2019-09-07] MEDS ORDERED: SODIUM CHLORIDE 0.9% 1,000 ML IV STA (15:47)
--- NOTE | 2019-09-07 15:51 | ED ---
Seizure HPI - General Chief Complaint: Seizure Stated Complaint: Seizure Time Seen by Provider: 09/07/19 15:43 Source: patient Mode of arrival: ambulatory Limitations: no limitations - History of Present Illness Initial Comments: 49-year-old female patient presents to the emergency department today for evaluation after having a seizure. Patient was at her doctor's office receiving bad news when she fell to the floor. EMS states that it was a short seizure. She did strike her head on the floor. Patient states she is currently experiencing dizziness and nausea. Denies any headache, blurred vision, or double vision. States she does have a history of seizures for which she takes Klonopin and Topamax. She hasn't taking her medications as directed. Patient states she has been having diarrhea over the last few days. States she is having decreased appetite. Denies any abdominal pain, fever, or chills. Denies any recent travel or sick contacts. Patient denies any recent rash, cough, shortness of breath, chest pain, constipation, back pain, numbness, tingling, dizziness, weakness, hematuria, dysuria, urinary urgency, urinary frequency, headache, visual changes, or any other complaints. - Related Data Home Medications Medication Instructions Recorded Confirmed Cetirizine HCl [Zyrtec] 10 mg PO DAILY 10/14/13 08/26/19 Diazepam [Valium] 5 mg PO DIRECTED PRN 10/14/13 08/26/19 Escitalopram [Lexapro] 10 mg PO DAILY 10/14/13 08/26/19 Esomeprazole Magnesium [NexIUM] 40 mg PO DAILY 10/14/13 08/26/19 Fluticasone/Salmeterol [Advair 1 puff INHALATION Q12HR PRN 10/14/13 08/26/19 100-50 Diskus] Folic Acid 1 mg PO DAILY 10/14/13 08/26/19 Meclizine [Antivert] 1 caplet PO BID 10/14/13 08/26/19 Metoprolol Succinate [Toprol XL] 50 mg PO DAILY 10/14/13 08/26/19 Multivitamin [Multivitamins] 1 each PO DIRECTED 10/14/13 08/26/19 [place] Oil 1 caplet PO BID 10/14/13 08/26/19 Tiotropium 18 Mcg/Puff [Spiriva] 1 puff INHALATION DIRECTED 10/14/13 08/26/19 Topiramate [Topamax] 100 mg PO BID 10/14/13 08/26/19 Triamterene-Hctz 37.5-25Mg 1 each PO DAILY 10/14/13 08/26/19 [Dyazide 37.5-25 Capsule] Xolair 225 mg SQ DIRECTED 10/14/13 08/26/19 Zafirlukast [Accolate] 20 mg PO BID 10/14/13 08/26/19 clonazePAM [KlonoPIN] 1 mg PO DAILY 10/14/13 08/26/19 Potassium Chloride 8 meq PO DAILY 08/06/14 08/26/19 Hydrocortisone [Cortef] 5 mg PO DIRECTED 09/02/15 08/26/19 Levothyroxine Sodium [Synthroid] 100 mcg PO DAILY 06/29/16 08/26/19 Phentermine HCl [Adipex-P] 37.5 mg PO QAM 06/29/16 08/26/19 metFORMIN HCL [Glucophage] 500 mg PO BID 01/16/17 08/26/19 Hydrocortisone 5 mg PO DAILY 06/04/18 08/26/19 Allergies Allergy/AdvReac Type Severity Reaction Status Date / Time iodine Allergy Severe Anaphylaxis Verified 09/07/19 15:42 diltiazem HCl [From Cardizem] Allergy Rash/Hives Verified 09/07/19 15:42 levetiracetam [From Keppra] Allergy Rash/Hives Verified 09/07/19 15:42 midodrine HCl Allergy Unknown Verified 09/07/19 15:42 [From ProAmatine] paroxetine HCl [From Paxil] Allergy Rash/Hives Verified 09/07/19 15:42 Sulfa (Sulfonamide Allergy Unknown Verified 09/07/19 15:42 Antibiotics) Review of Systems ROS Statement: Those systems with pertinent positive or pertinent negative responses have been documented in the HPI. ROS Other: All systems not noted in ROS Statement are negative. Past Medical History Past Medical History: Asthma, Chest Pain / Angina, Fibromyalgia, GERD/Reflux, Hearing Disorder / Deafness, Seizure Disorder Additional Past Medical History / Comment(s): MENIERES/LEGALLY BLIND/DEAFNESS LT EAR/DIFF HEARING RT/RT HEARING AID/HYPOGLYCEMIA/MIGRAINE/POOR CIRCULATION/VARICOSE VIENS/HYPOKALEMIA/TACHYCARDIA/SINUS PROBLEMS/IRRITABLE BOWEL SYNDROME/HIATALHERNIA. Adrenal insufficiency/ kelby's dis, thyroid issues History of Any Multi-Drug Resistant Organisms: None Reported Past Surgical History: Ear Surgery Additional Past Surgical History / Comment(s): SHUNT TO RT SIDE OF HEAD D/T HYDROCEPHALUS/BILAT CATARACT REMOVED, EGD/COLONOSCOPY Past Anesthesia/Blood Transfusion Reactions: Previous Problems w/ Anesthesia, Motion Sickness Past Psychological History: Anxiety, Depression Smoking Status: Never smoker Past Alcohol Use History: None Reported Past Drug Use History: None Reported - Past Family History Father Family Medical History: Coronary Artery Disease (CAD) Mother Family Medical History: Unable to Obtain General Exam Limitations: no limitations General appearance: alert, in no apparent distress, other (This is a well- developed, well-nourished adult female patient in no acute distress. Vital signs upon presentation are temperature 98.7F, pulse 68, respirations 20, blood pressure 110/70, pulse ox 94% on room air.) Eye exam: Present: normal appearance, PERRL, EOMI. Absent: scleral icterus, conjunctival injection, periorbital swelling ENT exam: Present: normal exam, normal oropharynx, mucous membranes moist Neck exam: Present: normal inspection, full ROM, other (Nontender, no step-off, no deformity to firm midline palpation of the posterior cervical spine. Full range of motion without pain or limitation.). Absent: tenderness, meningismus, lymphadenopathy Respiratory exam: Present: normal lung sounds bilaterally. Absent: respiratory distress, wheezes, rales, rhonchi, stridor Cardiovascular Exam: Present: regular rate, normal rhythm, normal heart sounds. Absent: systolic murmur, diastolic murmur, rubs, gallop, clicks GI/Abdominal exam: Present: soft, normal bowel sounds. Absent: distended, tenderness, guarding, rebound, rigid Back exam: Present: normal inspection, other (Nontender, no step-off, no deformity to firm midline palpation of the thoracic and lumbar vertebrae. Full range of motion without pain or limitation.). Absent: vertebral tenderness Neurological exam: Present: alert, oriented X3, CN II-XII intact, other (Strength in all 4 extremities is 5/5.) Psychiatric exam: Present: normal affect, normal mood Skin exam: Present: warm, dry, intact, normal color. Absent: rash Course Vital Signs 09/07/19 09/07/19 15:38 17:48 Temperature 98.7 F 97.9 F Pulse Rate 68 89 Respiratory 20 16 Rate Blood Pressure 110/70 141/79 O2 Sat by Pulse 94 L 98 Oximetry Medical Decision Making - Medical Decision Making 49-year-old female patient presents to the emergency department today for evaluation after having a seizure at her doctor's office. Report stated that it was very short seizure. She did fall and strike her head on the floor. Labs reviewed and were unremarkable. CT brain was negative. Upon reevaluation patient is feeling better. Patient does have a history of adrenal crisis, she does have hydrocortisone at home to take and stress situations, she is urged to take this when she arrives home. She is instructed to follow-up with her neurologist as soon as possible for reevaluation. She is instructed to follow- up with her primary care physician for recheck in 1-2 days. Return parameters were discussed in detail. She verbalizes understanding and agrees with this plan. - Lab Data Result diagrams: 09/07/19 15:57 09/07/19 15:57 Lab Results 09/07/19 09/07/19 09/07/19 Range/Units 15:57 15:57 16:13 WBC 8.2 (3.8-10.6) k/uL RBC 4.59 (3.80-5.40) m/uL Hgb 14.7 (11.4-16.0) gm/dL Hct 44.9 (34.0-46.0) % MCV 97.8 (80.0-100.0) fL MCH 32.0 (25.0-35.0) pg MCHC 32.7 (31.0-37.0) g/dL RDW 13.3 (11.5-15.5) % Plt Count 201 (150-450) k/uL Neutrophils % 68 % Lymphocytes % 22 % Monocytes % 5 % Eosinophils % 3 % Basophils % 0 % Neutrophils # 5.6 (1.3-7.7) k/uL Lymphocytes # 1.8 (1.0-4.8) k/uL Monocytes # 0.4 (0-1.0) k/uL Eosinophils # 0.2 (0-0.7) k/uL Basophils # 0.0 (0-0.2) k/uL Sodium 139 (137-145) mmol/L Potassium 4.1 (3.5-5.1) mmol/L Chloride 104 (98-107) mmol/L Carbon Dioxide 26 (22-30) mmol/L Anion Gap 9 mmol/L BUN 15 (7-17) mg/dL Creatinine 0.80 (0.52-1.04) mg/dL Est GFR (CKD-EPI)AfAm >90 (>60 ml/min/1.73 sqM) Est GFR (CKD-EPI)NonAf 87 (>60 ml/min/1.73 sqM) Glucose 98 (74-99) mg/dL Calcium 9.6 (8.4-10.2) mg/dL Total Bilirubin 0.3 (0.2-1.3) mg/dL AST 29 (14-36) U/L ALT 24 (4-34) U/L Alkaline Phosphatase 73 (38-126) U/L Total Protein 7.3 (6.3-8.2) g/dL Albumin 4.2 (3.5-5.0) g/dL Urine Color Yellow Urine Appearance Clear (Clear) Urine pH 7.0 (5.0-8.0) Ur Specific [place] 1.015 (1.001-1.035) Urine Protein Negative (Negative) Urine Glucose (UA) Negative (Negative) Urine Ketones Negative (Negative) Urine Blood Small H (Negative) Urine Nitrite Negative (Negative) Urine Bilirubin Negative (Negative) Urine Urobilinogen <2.0 (<2.0) mg/dL Ur Leukocyte Esterase Negative (Negative) Urine RBC <1 (0-5) /hpf Urine WBC 1 (0-5) /hpf Ur Squamous Epith Cells <1 (0-4) /hpf - EKG Data -: EKG Interpreted by In EKG Comments: EKG obtained at 1601 shows normal sinus rhythm with a ventricular rate of 65, VA interval 150, QRS duration 76, QT 436, QTc 453. No evidence of ST elevation or depression. - Radiology Data Radiology results: report reviewed, image reviewed CT brain without contrast was obtained. Report was reviewed in its entirety. Impression by Dr. Quintanilla shows no acute intracranial hemorrhage, mass effect, or midline shift. Right frontal approach catheter terminates in the subarachnoid space of the right frontal region. No suspicious extra-axial fluid collection. Disposition Clinical Impression: Seizure Disposition: HOME SELF-CARE Condition: Good Instructions (If sedation given, give patient instructions): Recurrent Seizures in Adults (ED) Additional Instructions: Take your stress dose of hydrocortisone when you get home. Follow up with the neurologist for further evaluation as soon as possible. Return to the emergency department for any new, worsening, or concerning symptoms. Is patient prescribed a controlled substance at d/c from ED?: No Referrals: Ibrahima Smith DO [Primary Care Provider] - 1-2 days Time of Disposition: 17:37
[2019-09-07 16:12] LABS: Basophils % (A) 0 %; Eosinophils # (A) 0.2 k/uL (0-0.7); Eosinophils % (A) 3 %; HCT 44.9 % (34.0-46.0); HGB 14.7 gm/dL (11.4-16.0); Lymphocytes # (A) 1.8 k/uL (1.0-4.8); Lymphocytes % (A) 22 %; MCHC 32.7 g/dL (31.0-37.0); MCV 97.8 fL (80.0-100.0); Mean Platelet Volume 8.9; Monocytes # (A) 0.4 k/uL (0-1.0); Monocytes % (A) 5 %; Neutrophils # (A) 5.6 k/uL (1.3-7.7); Neutrophils % (A) 68 %; Platelet Count 201 k/uL (150-450); RBC 4.59 m/uL (3.80-5.40); RDW 13.3 % (11.5-15.5); WBC 8.2 k/uL (3.8-10.6)
[2019-09-07 16:21] LABS: ALT 24 U/L (4-34); AST 29 U/L (14-36); African American GFR (CKD) >90 (>60 ml/min/1.73 sqM); Albumin 4.2 g/dL (3.5-5.0); Alkaline Phosphatase 73 U/L (38-126); Anion Gap 9 mmol/L; Blood Urea Nitrogen 15 mg/dL (7-17); Calcium 9.6 mg/dL (8.4-10.2); Carbon Dioxide 26 mmol/L (22-30); Chloride 104 mmol/L (98-107); Glucose 98 mg/dL (74-99); Non-African American GFR(CKD) 87 (>60 ml/min/1.73 sqM); Potassium 4.1 mmol/L (3.5-5.1); Sodium 139 mmol/L (137-145); Total Bilirubin 0.3 mg/dL (0.2-1.3); Total Protein 7.3 g/dL (6.3-8.2)
[2019-09-07 16:24] LABS: Appearance,Urine Clear (Clear); Bilirubin,Urine Negative (Negative); Blood,Urine Small (Negative); Color,Urine Yellow; Glucose,Urine (UA) Negative (Negative); Ketones,Urine Negative (Negative); Leukocyte Esterase,Urine Negative (Negative); Nitrite,Urine Negative (Negative); Protein,Urine Negative (Negative); RBC,Urine <1 /hpf (0-5); Specific Gravity,Urine 1.015 (1.001-1.035); Squamous Epithelial Cell,Urine <1 /hpf (0-4); Urobilinogen,Urine <2.0 mg/dL (<2.0); WBC,Urine 1 /hpf (0-5)
--- NOTE | 2019-09-07 16:37 | CT ---
EXAMINATION TYPE: CT brain wo con DATE OF EXAM: 09/07/2019 COMPARISON: NONE HISTORY: Seizure today. Frontal head injury. CT DLP: 1103.4 mGycm. Automated Exposure Control for Dose Reduction was Utilized. TECHNIQUE: CT scan of the head is performed without contrast. FINDINGS: Right frontal approach extra-axial catheter appears within the subarachnoid space entering through a calvarial marilin hole. There is no acute intracranial hemorrhage, mass effect, or midline sh ift identified. The ventricles and sulci are slightly symmetrically prominent compatible with age-re lated volume loss. No suspicious extra-axial fluid collection seen. The globes are intact and the vi sualized sinuses are clear. Slight hyperostosis of the internal frontal bone is incidentally noted. P ostsurgical change of the right mastoid air cells is seen. IMPRESSION: No acute intracranial hemorrhage, mass effect, or midline shift is seen. Right frontal a pproach catheter terminates in the subarachnoid space of the right frontal region. No suspicious extr a-axial fluid collection.
[2019-09-07 17:49] VITALS: BP 141/79; PULSE 89; RESP 16; TEMP 97.9
== END 2019-09-07 17:48 | disposition home or self-care (01) ==
LOC: EC 15:35
DX: G40.909 Epilepsy, unspecified, not intractable, without status epilepticus (principal); J45.909 Unspecified asthma, uncomplicated; M79.7 Fibromyalgia; K21.9 Gastro-esophageal reflux disease without esophagitis; E07.9 Disorder of thyroid, unspecified; F41.9 Anxiety disorder, unspecified; F32.9 Major depressive disorder, single episode, unspecified; Z79.51 Long term (current) use of inhaled steroids; Z79.890 Hormone replacement therapy; Z79.899 Other long term (current) drug therapy; Z91.048 Other nonmedicinal substance allergy status; Z88.8 Allergy status to other drugs, medicaments and biological substances; Z88.2 Allergy status to sulfonamides; Z98.890 Other specified postprocedural states
CPT/HCPCS: 36415; 70450; 80053; 81001; 85025; 93005; 96360; 99284

== ENCOUNTER → 2019-09-09 | Outpatient (CLI) | payer OTHER ==
[2019-09-09 10:32] LABS: Basophils % (A) 0 %; Eosinophils # (A) 0.3 k/uL (0-0.7); Eosinophils % (A) 3 %; HCT 42.5 % (34.0-46.0); Lymphocytes # (A) 2.9 k/uL (1.0-4.8); Lymphocytes % (A) 36 %; MCH 32.1 pg (25.0-35.0); MCHC 32.9 g/dL (31.0-37.0); MCV 97.5 fL (80.0-100.0); Mean Platelet Volume 9.1; Monocytes # (A) 0.3 k/uL (0-1.0); Monocytes % (A) 4 %; Neutrophils # (A) 4.3 k/uL (1.3-7.7); Neutrophils % (A) 54 %; Platelet Count 206 k/uL (150-450); RBC 4.36 m/uL (3.80-5.40); RDW 13.4 % (11.5-15.5)
[2019-09-09 16:21] LABS: African American GFR (CKD) 100.3 (60.0-200.0); Albumin 4.2 g/dL (3.80-4.90); Albumin/Globulin Ratio 1.68 (1.60-3.17); Anion Gap 12.5 mmol/L (4.00-12.00); BUN/Creat Ratio 26.25 Ratio (12.00-20.00); Carbon Dioxide 21.5 mmol/L (21.6-31.8); Globulin 2.5 g/dL (1.6-3.3); LDL Cholesterol,Calculated 82.4 mg/dL (0.0-131.0); Non-African American GFR(CKD) 86.6 (60.0-200.0); Potassium 3.9 mmol/L (3.5-5.5); Total Bilirubin 0.3 mg/dL (0.3-1.2); Total Protein 6.7 g/dL (6.2-8.2); VLDL Calculation 33.6 mg/dL (5.00-40.00)
[2019-09-09 16:23] LABS: T4, Free (Free Thyroxine) 1.2 ng/dL (0.80-1.80)
== END | disposition home or self-care (01) ==
LOC: LABWHC1 10:08
PROVIDERS: ATTEND Internal Medicine
DX: E23.0 Hypopituitarism (principal); E27.49 Other adrenocortical insufficiency; E55.9 Vitamin D deficiency, unspecified; E53.8 Deficiency of other specified B group vitamins
CPT/HCPCS: 36415; 80053; 80061; 82024; 82306; 82533; 82607; 84305; 84439; 84443; 85025

== ENCOUNTER → 2019-12-02 | Outpatient (CLI) | payer OTHER ==
--- NOTE | 2019-12-02 11:47 | XR ---
EXAMINATION TYPE: XR chest 2V DATE OF EXAM: 12/02/2019 COMPARISON: 09/07/2009 HISTORY: 49-year-old female R07.89, other chest pain. TECHNIQUE: Frontal and lateral views FINDINGS: CARTRIDGE FEEDER shunt catheter tracks down the right side of the thorax. Heart normal size. Aorta and pulmonary va sculature within normal limits. No consolidation or pleural effusion. IMPRESSION: Right-sided CARTRIDGE FEEDER shunt catheter. No acute cardiopulmonary process.
== END | disposition home or self-care (01) ==
LOC: RADXRMAIN 11:16
PROVIDERS: ATTEND Family Medicine
DX: R07.89 Other chest pain (principal); Z98.2 Presence of cerebrospinal fluid drainage device
CPT/HCPCS: 71046

== ENCOUNTER → 2019-12-16 | Outpatient (CLI) | payer OTHER ==
[2019-12-16 08:52] LABS: HCT 42.5 % (34.0-46.0); HGB 13.8 gm/dL (11.4-16.0); Hypochromasia Slight; MCH 32.2 pg (25.0-35.0); MCHC 32.6 g/dL (31.0-37.0); MCV 98.8 fL (80.0-100.0); Mean Platelet Volume 9.2; Platelet Count 170 k/uL (150-450); RDW 13.5 % (11.5-15.5); WBC 7.4 k/uL (3.8-10.6)
[2019-12-16 18:45] LABS: Albumin 3.9 g/dL (3.80-4.90); Albumin/Globulin Ratio 1.63 (1.60-3.17); Anion Gap 8.6 mmol/L (4.00-12.00); BUN/Creat Ratio 21.11 Ratio (12.00-20.00); Calcium 8.7 mg/dL (8.7-10.3); Carbon Dioxide 21.4 mmol/L (21.6-31.8); Chol/HDL Ratio 3.38; Globulin 2.4 g/dL (1.6-3.3); LDL Cholesterol,Calculated 71.2 mg/dL (0.0-131.0); Non-African American GFR(CKD) 75.1 (60.0-200.0); Potassium 3.7 mmol/L (3.5-5.5); Total Bilirubin 0.3 mg/dL (0.2-1.2); Total Protein 6.3 g/dL (6.2-8.2); VLDL Calculation 35.8 mg/dL (5.00-40.00)
== END | disposition home or self-care (01) ==
LOC: LABWHC1 08:21
PROVIDERS: ATTEND Internal Medicine
DX: E23.0 Hypopituitarism (principal); E27.1 Primary adrenocortical insufficiency; E55.9 Vitamin D deficiency, unspecified; E53.8 Deficiency of other specified B group vitamins
CPT/HCPCS: 36415; 80053; 80061; 82024; 82306; 82533; 82607; 84305; 84439; 84443; 85027

== ENCOUNTER → 2020-01-26 | Outpatient (CLI) | payer OTHER ==
[2020-01-26 08:49] VITALS: BP 103/71; PULSE 72; RESP 20; TEMP 98.1
--- NOTE | 2020-01-26 09:55 | P.HPOB ---
History of Present Illness H&P Date: 01/26/20 Chief Complaint: The patient is here for her routine gynecologic exam and ma mmogram. This is a 49-year-old G0 with an LMP of 01/15/2020. The patient is here to establish with this office. She states it is been about 3 years since her last pelvic exam. Menstrual periods have been about monthly but occasionally will have 2 in 1 month. She states they are getting shorter and are now lasting about 2 days with variable flow. She has been experiencing vaginal dryness which is associated with vulvar pruritus. She occasionally has noticed a slight discharge with slight odor. She states she has been experiencing hot flashes for about 1 or 2 years. She is complaining of pelvic pain bilaterally which she has experienced for many years. She rates the pain at 6 out of 10 and is"tolerable". She states this has gone on for many years and she has"gotten used to it". She describes it as a dull ache but is occasionally sharp. She denies any activity that seems to be associated with it and she also does not believe it is associated with her menstrual periods. Her breasts feel sore and states she has to wear a sports bra because of this. Review of Systems The patient's weight has been stable over the last year. She denies respiratory, cardiac, or G.I. problems. : See HPI. Past Medical History Past Medical History: Asthma, Chest Pain / Angina, Diabetes Mellitus, Fibromyalgia, GERD/Reflux, Hearing Disorder / Deafness, Osteoarthritis (OA), Seizure Disorder, Thyroid Disorder Additional Past Medical History / Comment(s): MENIERES/LEGALLY BLIND/DEAFNESS LT EAR/DIFF HEARING RT/RT HEARING AID/HYPOGLYCEMIA/MIGRAINE/POOR CIRCULATION/VARICOSE VIENS/HYPOKALEMIA/TACHYCARDIA/SINUS PROBLEMS/IRRITABLE BOWEL SYNDROME/HIATALHERNIA. Adrenal insufficiency/ kelby's dis, hypothyroid, seizure disorder, fibromyalgia. History of hydrocephalus and pituitary gland abnormality. 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 No other history of STDs. History of Any Multi-Drug Resistant Organisms: None Reported Past Surgical History: Ear Surgery Additional Past Surgical History / Comment(s): SHUNT TO RT SIDE OF HEAD D/T HYDROCEPHALUS/BILAT CATARACT REMOVED, EGD/COLONOSCOPY Past Anesthesia/Blood Transfusion Reactions: Previous Problems w/ Anesthesia, Motion Sickness Past Psychological History: Anxiety, Depression Smoking Status: Never smoker Past Alcohol Use History: Rare Past Drug Use History: None Reported Additional History: She is single but has been with her boyfriend since 2006. She does not live with him and she states she is not sexually active with him. She is disabled. - Past Family History Father Family Medical History: Coronary Artery Disease (CAD) Additional Family Medical History / Comment(s): Paternal aunt and paternal cousin had breast cancer. Paternal grandmother had ovarian cancer. Paternal cousin had endometriosis. Mother Family Medical History: Unable to Obtain Medications and Allergies Home Medications Medication Instructions Recorded Confirmed Type Cetirizine HCl [Zyrtec] 10 mg PO DAILY 10/14/13 01/26/20 History Escitalopram [Lexapro] 10 mg PO DAILY 10/14/13 01/26/20 History Esomeprazole Magnesium [NexIUM] 40 mg PO DAILY 10/14/13 01/26/20 History Fluticasone/Salmeterol [Advair 1 puff INHALATION Q12HR PRN 10/14/13 01/26/20 History 100-50 Diskus] Folic Acid 1 mg PO DAILY 10/14/13 01/26/20 History Meclizine [Antivert] 1 caplet PO BID 10/14/13 01/26/20 History Metoprolol Succinate [Toprol XL] 50 mg PO DAILY 10/14/13 01/26/20 History Multivitamin [Multivitamins] 1 each PO DIRECTED 10/14/13 01/26/20 History [place] Oil 1 caplet PO BID 10/14/13 01/26/20 History Tiotropium 18 Mcg/Puff [Spiriva] 1 puff INHALATION DIRECTED 10/14/13 01/26/20 History Topiramate [Topamax] 100 mg PO BID 10/14/13 01/26/20 History Triamterene-Hctz 37.5-25Mg 1 each PO DAILY 10/14/13 01/26/20 History [Dyazide 37.5-25 Capsule] Xolair 225 mg SQ DIRECTED 10/14/13 01/26/20 History Zafirlukast [Accolate] 20 mg PO BID 10/14/13 01/26/20 History clonazePAM [KlonoPIN] 1 mg PO DAILY 10/14/13 01/26/20 History Potassium Chloride 8 meq PO DAILY 08/06/14 01/26/20 History Hydrocortisone [Cortef] 5 mg PO DIRECTED 09/02/15 01/26/20 History Levothyroxine Sodium [Synthroid] 100 mcg PO DAILY 06/29/16 01/26/20 History metFORMIN HCL [Glucophage] 500 mg PO BID 01/16/17 01/26/20 History Hydrocortisone 5 mg PO DAILY 06/04/18 01/26/20 History Allergies Allergy/AdvReac Type Severity Reaction Status Date / Time iodine Allergy Severe Anaphylaxis Verified 01/26/20 08:41 diltiazem HCl [From Cardizem] Allergy Rash/Hives Verified 01/26/20 08:41 levetiracetam [From Keppra] Allergy Rash/Hives Verified 01/26/20 08:41 midodrine HCl Allergy Unknown Verified 01/26/20 08:41 [From ProAmatine] paroxetine HCl [From Paxil] Allergy Rash/Hives Verified 01/26/20 08:41 Sulfa (Sulfonamide Allergy Unknown Verified 01/26/20 08:41 Antibiotics) Exam Vital Signs Temp Pulse Resp BP Pulse Ox 01/26/20 08:46 98.1 F 72 20 103/71 95 Intake and Output 01/25/20 01/26/20 01/26/20 22:59 06:59 14:59 Other: Weight 97.976 kg Height 4 feet 11 inches, weight 216 pounds, BMI 43.6. This is a well-developed well-nourished heavyset white female who is alert and oriented times 3 in no acute distress. HEENT: Within normal limits. NECK: Supple without mass or thyromegaly. CHEST AND LUNGS: Clear to auscultation. HEART: Regular rate and rhythm. BREASTS: Are without mass or discharge. AXILLARY EXAM: Negative for adenopathy. BACK: Negative for CVA tenderness. ABDOMEN: Soft, obese, nontender, without palpable masses. PELVIC EXAM: External genitalia reveals mild erythema with generalized dryness of the skin with no focal lesions. Cervix and vagina appear normal with minimal atrophy. There is no unusual discharge. There is no evidence of prolapse. The uterus is midposition, nongravid size and nontender. There are no palpable adnexal masses or tenderness. RECTAL EXAM: Rectovaginal exam is negative for mass or tenderness and is negative for occult blood. EXTREMITIES: Nontender. IMPRESSION: 1. 49-year-old premenopausal female with slight menstrual irregularity and vasomotor symptoms, probable perimenopause. 2. History of chronic pelvic pain without significant physical findings at this time. 3. Mild vulvitis with vulvar pruritus and vulvar dryness. PLAN: 1. Pap smear was performed. GC and chlamydia testing will be obtained from Pap smear. 2. Self breast awareness was discussed with the patient. 3. Screening mammogram was done on 04/01/2019 and was benign. We will plan on having her repeat this in approximately 2 months. The order slip will be given to the patient. 4. Pelvic ultrasound was recommended and the order slip was given to the patient. 5. Affirm testing for Alma Rosa, Gardnerella, and Trichomonas was performed from the vagina. If this is negative, consider Kenalog cream. I have advised her to avoid over washing and she should try to avoid scratching rubbing the area. She states she does tend to wash with soap quite a bit. 6. The patient will keep a menstrual calendar and will call she's having menstrual problems. 7. She was advised to return in one year for her annual well woman exam and as needed.
--- NOTE | 2020-02-03 11:32 | P.PN ---
Progress Note - Text Progress Note Date: 02/03/20 OUTPATIENT FOLLOW-UP NOTE TEST(S)/RESULTS: Test results from 01/26/2020 include negative Pap smear, affirm testing which was negative for arlene, Gardnerella and Trichomonas. GC and chlamydia testing were also negative. METHOD OF NOTIFICATION: The patient was notified by phone. PATIENT COMMENTS: DIAGNOSIS: Negative Pap smear, negative affirm testing for arlene, Gardnerella, and Trichomonas periods negative GC and chlamydia testing. DISCUSSION: Because of the vulvar erythema and vulvar symptoms, the patient will be prescribed Kenalog 0.1% cream which she is to use twice a day when necessary for vulvar irritation. The electronic prescription has been sent to [facility] on . PLAN: She is to schedule her pelvic ultrasound which was recommended. She states she will do this soon.
== END | disposition home or self-care (01) ==
LOC: WWCWWP 08:25
PROVIDERS: ATTEND Obstetrics & Gynecology
DX: Z53.9 Procedure and treatment not carried out, unspecified reason (principal)

== ENCOUNTER → 2020-02-23 | Outpatient (CLI) | payer OTHER ==
--- NOTE | 2020-02-23 23:37 | CT ---
EXAMINATION TYPE: CT lumbar spine wo con DATE OF EXAM: 02/23/2020 COMPARISON: None HISTORY: low back pain with radiation bilaterally to the hips and thighs CT DLP: 1902.7 mGycm CONTRAST: None TECHNIQUE: CT of the lumbar spine is performed on a spiral scan at 3 mm thick sections. Reconstructed images are performed in the coronal and sagittal planes. FINDINGS: T12-L1: No focal disc herniation or significant disc bulge is evident. No spinal canal stenosis or neural foraminal stenosis is present. L1-L2: No focal disc herniation or significant disc bulge is evident. No spinal canal stenosis or n eural foraminal stenosis is present L2-L3: No focal disc herniation or significant disc bulge is evident. No spinal canal stenosis or n eural foraminal stenosis is present L3-L4: Broad-based disc bulge is present with mild anterior thecal sac flattening. No AP spinal canal stenosis or neural foraminal stenosis present. Very mild facet degenerative change may be present. L4-L5: There is broad-based left paracentral to left lateral disc bulge. This is impinging the left f oramen to a moderate to severe degree. Correlate with left L5 radicular symptoms. There is moderate a nterior thecal sac compression. No AP spinal canal stenosis present. Right foramen is patent. L5-S1: There is loss of disc height L5-S1. Endplate spurring is present may have mild anterior thecal sac contact. No AP spinal canal stenosis is present. There is moderate bilateral foraminal narrowing . Disc spaces narrowed with vacuum disc phenomenon. Vertebral alignment appears normal. IMPRESSION: 1. Broadbase left paracentral left lateral disc bulging L4-5 impinging the left L5 nerve root within the foramen. No spinal canal stenosis present. 2. Endplate spurring and loss of disc height L5-S1. No spinal canal stenosis is present. Moderate romie ateral foraminal narrowing is present. 3. Broad-based disc bulge with mild anterior thecal sac flattening at L3-4.
--- NOTE | 2020-02-23 23:43 | CT ---
EXAMINATION TYPE: CT brain jm wo con DATE OF EXAM: 02/23/2020 COMPARISON: 09/07/2019 HISTORY: headache, neck pain CT DLP: 1424.8 mGycm, Automated exposure control for dose reduction was used. CONTRAST: Patient injected with 0 mL of Isovue 300. CT of the brain is performed utilizing 3 mm thick sections through the posterior fossa and 3 mm thick sections through the remaining calvarium. Study is performed within 24 hours of arrival to the hospital. No abnormal hyperdensity is present to suggest an acute intracranial hemorrhage. No mass lesion is evident. No acute infarcts are evident. Ventricles and sulci are appropriate for the patient age. Extra-axial spaces appear normal. Paranasal sinuses and mastoid air cells within the [id number] are clear. There are prior right mas toidectomy. Shunt catheter is present on the right causing beam hardening artifact. Catheter is in th e right frontal extra-axial space. No subdural hematoma or hygroma is evident. Note is made of hypero stosis frontalis internus, normal variant. IMPRESSIONS: 1. No acute intracranial process. 2. Right-sided shunt catheter into the right frontal extra-axial space. No abnormal extra-axial fluid collections are present within this region or elsewhere within the brain. CT cervical spine. COMPARISON: None CT of the cervical spine is performed in the axial plane at 2 mm thick sections. Reconstructed image s in the coronal, and sagittal plane are reviewed on the computer. No acute fractures are evident. Vertebral body alignment is normal. There is mild diffuse narrowing of disc height through the cervical spine. Vertebral body heights are preserved. No spinal canal stenosis is evident. No neural foraminal stenosis is evident. There may be a 0.3 cm nodule at the visualized right lung apex. Series 16 image 71. IMPRESSIONS: 1. Mild degenerative disc changes. 2. A 0.3 cm nodule right lung apex nodule, follow up CT chest is recommended.
== END | disposition home or self-care (01) ==
LOC: RADCTMAIN 13:49
PROVIDERS: ATTEND Psychiatry & Neurology Neurology
DX: M47.812 Spondylosis without myelopathy or radiculopathy, cervical region (principal); M48.061 Spinal stenosis, lumbar region without neurogenic claudication; M51.26 Other intervertebral disc displacement, lumbar region; M25.78 Osteophyte, vertebrae; R51 Headache
CPT/HCPCS: 70450; 72125; 72131

== ENCOUNTER → 2020-03-01 | Outpatient (CLI) | payer OTHER ==
--- NOTE | 2020-03-01 15:45 | US ---
EXAMINATION TYPE: US pelvic complete DATE OF EXAM: 03/01/2020 COMPARISON: US 04/09/18 CLINICAL HISTORY: 49-year-old female R10.2 Pelvic Pain. TECHNIQUE: Transvaginal (TV) and Transabdominal (TA) . Transabdominal sonographic images of the pel vis were acquired. Transvaginal sonographic images were medically necessary to better assess the eleni asael. Date of LMP: 02/09/20 FINDINGS: EXAM MEASUREMENTS: Uterus: 7.1 x 44 x 3.4 cm Endometrial Stripe: 0.3 cm Right Ovary: 2.8 x 1.6 x 1.5 cm Left Ovary: 3.5 x 2.2 x 2.2 cm 1. Uterus: Anteverted. There is heterogeneous myometrium. They 1.1 x 1.4 cm myoma to the left post eriorly. Also, a few cervical nabothian cysts measuring up to 5 mm. 2. Endometrium: wnl 3. Right Ovary: wnl 4. Left Ovary: cyst with clumped internal echos measuring 2.2 x 1.8 x 1.7 cm. Trace fluid surroundin g left ovary 5. Bilateral Adnexa: wnl 6. Posterior cul-de-sac: wnl IMPRESSION: 1. A 2.2 cm cystic lesion of the left ovary with a mural based nodule, suspected retractile clot rela ting to a hemorrhagic cyst. Trace adjacent free fluid. Follow-up in 6-8 weeks to ensure clearance. 2. Possible subtle 1.4 cm fibroid along the left posterior uterus.
--- NOTE | 2020-03-01 17:48 | P.PN ---
Progress Note - Text Progress Note Date: 03/01/20 OUTPATIENT FOLLOW-UP NOTE TEST(S)/RESULTS: Pelvic ultrasound done on 03/01/2020 shows a 1.4 cm uterine fibroid and a left ovarian cyst with internal echoes measuring 2.2 cm. METHOD OF NOTIFICATION: The patient was notified by phone. PATIENT COMMENTS: She has been experiencing more hot flashes. DIAGNOSIS: Small uterine fibroid and 2.2 cm left ovarian cyst with internal echoes. Probable hemorrhagic ovarian cyst. Probable perimenopause. DISCUSSION: I recommended that she address in layers and drinking icewater when she first starts feeling a hot flash coming on. She understands we will try to avoid medication and hormones for the menopausal symptoms. We have discussed the nature of the left ovarian cyst and how I feel that most likely it is a temporary finding and I have recommended that we repeat the ultrasound. PLAN: Repeat pelvic ultrasound in 6-8 weeks. The order slip will be mailed to the patient.
== END | disposition home or self-care (01) ==
LOC: RADUSWWP 11:45
PROVIDERS: ATTEND Obstetrics & Gynecology
DX: N83.202 Unspecified ovarian cyst, left side (principal)
CPT/HCPCS: 76830; 76856

== ENCOUNTER → 2020-03-16 | Outpatient (CLI) | payer OTHER ==
[2020-03-16 09:14] LABS: Basophils % (A) 0 %; Eosinophils # (A) 0.1 k/uL (0-0.7); Eosinophils % (A) 1 %; HCT 44.1 % (34.0-46.0); HGB 13.7 gm/dL (11.4-16.0); Lymphocytes # (A) 1.4 k/uL (1.0-4.8); Lymphocytes % (A) 15 %; MCH 30.4 pg (25.0-35.0); MCV 97.9 fL (80.0-100.0); Mean Platelet Volume 9.6; Monocytes # (A) 0.6 k/uL (0-1.0); Monocytes % (A) 6 %; Neutrophils # (A) 7.2 k/uL (1.3-7.7); Neutrophils % (A) 77 %; Platelet Count 186 k/uL (150-450); RBC 4.51 m/uL (3.80-5.40); RDW 13.3 % (11.5-15.5); WBC 9.4 k/uL (3.8-10.6)
[2020-03-16 16:57] LABS: African American GFR (CKD) 76.6 (60.0-200.0); Albumin 4.2 g/dL (3.80-4.90); Albumin/Globulin Ratio 2.1 (1.60-3.17); Anion Gap 14.1 mmol/L (4.00-12.00); Carbon Dioxide 19.9 mmol/L (21.6-31.8); Non-African American GFR(CKD) 66.1 (60.0-200.0); Potassium 3.7 mmol/L (3.5-5.5); Total Bilirubin 0.3 mg/dL (0.2-1.2); Total Protein 6.2 g/dL (6.2-8.2)
[2020-03-16 17:06] LABS: T4, Free (Free Thyroxine) 1.1 ng/dL (0.80-1.80)
== END | disposition home or self-care (01) ==
LOC: LABWHC1 08:20
PROVIDERS: ATTEND Internal Medicine
DX: E27.9 Disorder of adrenal gland, unspecified (principal); E23.0 Hypopituitarism; E27.49 Other adrenocortical insufficiency; R53.83 Other fatigue
CPT/HCPCS: 36415; 80053; 82024; 82306; 82533; 82607; 84305; 84439; 84443; 85025

== ENCOUNTER → 2020-03-31 | Outpatient (CLI) | payer OTHER ==
--- NOTE | 2020-03-31 10:23 | CT ---
EXAMINATION TYPE: CT chest wo con DATE OF EXAM: 03/31/2020 COMPARISON: Radiograph 12/02/2019 HISTORY: 50-year-old female R91.8, Abnormal lung field TECHNIQUE: Contiguous axial scanning of the chest without IV contrast. Coronal and sagittal reconstru ctions performed. CT DLP: 615 mGycm Automated exposure control for dose reduction was used. FINDINGS: The SPOOL TENDER shunt catheter along the right anterior chest. Heart normal size without pericardial effusion. Aorta normal caliber with a bovine configuration to the aortic arch. No thoracic lymphadenopathy by C T size criteria. Evaluation of the lung shows no consolidation or pleural effusion. Central airways appear clear. Mini mal strandy atelectasis within the medial segment right middle lobe. Low attenuation of the hepatic parenchyma with some fatty sparing along the gallbladder fossa. Bones: No osseous destructive process. IMPRESSION: NO ACUTE PULMONARY PROCESS. UNDERLYING HEPATIC STEATOSIS INCIDENTALLY NOTED.
--- NOTE | 2020-03-31 13:11 | US ---
EXAMINATION TYPE: US abdomen complete DATE OF EXAM: 03/31/2020 COMPARISON: CT 2017 CLINICAL HISTORY: R10.11 RUQ pain, R91.8 abnormal lung field. Abdomen pain and loss of appetite EXAM MEASUREMENTS: Liver Length: 18.8 cm Gallbladder Wall: 0.2 cm CBD: 0.4 cm Spleen: 9.5 cm Right Kidney: 10.3 x 3.9 x 4.8 cm Left Kidney: 10.3 x 5.4 x 5.6 cm Difficult and limited study due to patient body habitus Pancreas: visualized portions wnl, limited by overlying midline bowel gas Liver: enlarged, attenuating, heterogeneous Gallbladder: hydropic Evidence for sonographic Abad's sign: yes CBD: visualized portions wnl, limited by overlying bowel gas Spleen: wnl Right Kidney: wnl Left Kidney: wnl Upper IVC: wnl Abd Aorta: proximal portion wnl, mid and distal portions obscured by overlying midline bowel gas IMPRESSION: 1. No acute ultrasound abnormality of the abdomen
== END | disposition home or self-care (01) ==
LOC: RADUSWWP 08:06
PROVIDERS: ATTEND Family Medicine
DX: R91.8 Other nonspecific abnormal finding of lung field (principal); R10.11 Right upper quadrant pain
CPT/HCPCS: 71250; 76700

== ENCOUNTER → 2020-04-05 | Outpatient (CLI) | payer OTHER ==
--- NOTE | 2020-04-05 14:57 | MM ---
Reason for exam: additional evaluation requested from prior study. Last mammogram was performed 1 year ago. History: Family history of breast cancer in aunt and breast cancer in cousin. Physical Findings: Nurse did not find any significant physical abnormalities on exam. MG 3D Diag Mammo W/Cad DARIA Bilateral CC and MLO view(s) were taken. Prior study comparison: April 01, 2019, bilateral MG 3d screening mammo w/cad. October 09, 2017, mammogram, performed at [facility]. There are scattered fibroglandular densities. No significant new findings when compared with previous films. These results were verbally communicated with the patient and result sheet given to the patient on 04/05/20. ASSESSMENT: Negative, BI-RAD 1 RECOMMENDATION: Routine screening mammogram of both breasts in 1 year.
== END | disposition home or self-care (01) ==
LOC: RADMAMWWP 13:23
PROVIDERS: ATTEND Obstetrics & Gynecology
DX: N64.4 Mastodynia (principal)
CPT/HCPCS: 77066; G0279; 77062

== ENCOUNTER → 2020-06-15 | Outpatient (CLI) | payer OTHER ==
[2020-06-15 08:13] LABS: Basophils # (A) 0.1 k/uL (0-0.2); Basophils % (A) 1 %; Eosinophils # (A) 0.2 k/uL (0-0.7); Eosinophils % (A) 3 %; HCT 42.1 % (34.0-46.0); HGB 13.8 gm/dL (11.4-16.0); Lymphocytes # (A) 2.3 k/uL (1.0-4.8); Lymphocytes % (A) 32 %; MCH 32.5 pg (25.0-35.0); MCHC 32.7 g/dL (31.0-37.0); MCV 99.2 fL (80.0-100.0); Mean Platelet Volume 8.6; Monocytes # (A) 0.5 k/uL (0-1.0); Monocytes % (A) 7 %; Neutrophils % (A) 55 %; Platelet Count 166 k/uL (150-450); RBC 4.24 m/uL (3.80-5.40); WBC 7.3 k/uL (3.8-10.6)
[2020-06-15 16:05] LABS: Hemoglobin A1C 5.7 % (4.0-6.0)
[2020-06-15 19:09] LABS: T4, Free (Free Thyroxine) 1.1 ng/dL (0.80-1.80)
[2020-06-15 19:46] LABS: African American GFR (CKD) 76.1 (60.0-200.0); Albumin 4.2 g/dL (3.80-4.90); Albumin/Globulin Ratio 1.83 (1.60-3.17); Anion Gap 11.2 mmol/L (4.00-12.00); Carbon Dioxide 20.8 mmol/L (21.6-31.8); Globulin 2.3 g/dL (1.6-3.3); Non-African American GFR(CKD) 65.6 (60.0-200.0); Potassium 3.7 mmol/L (3.5-5.5); Total Bilirubin 0.2 mg/dL (0.2-1.2); Total Protein 6.5 g/dL (6.2-8.2)
== END | disposition home or self-care (01) ==
LOC: LABWHC1 07:37
PROVIDERS: ATTEND Internal Medicine
DX: E27.49 Other adrenocortical insufficiency (principal); E55.9 Vitamin D deficiency, unspecified; E53.8 Deficiency of other specified B group vitamins
CPT/HCPCS: 36415; 80053; 82024; 82306; 82533; 82607; 83036; 84439; 84443; 85025

== ENCOUNTER → 2020-08-15 | Outpatient (CLI) | payer MEDICARE, OTHER ==
[2020-08-16 04:32] LABS: African American GFR (CKD) 117.1 (60.0-200.0)
== END | disposition home or self-care (01) ==
LOC: LABWHC1 15:48
PROVIDERS: ATTEND Nurse Practitioner Acute Care
DX: N28.9 Disorder of kidney and ureter, unspecified (principal)
CPT/HCPCS: 36415; 82565; 84520

== ENCOUNTER → 2020-09-14 | Outpatient (CLI) | payer MEDICARE, OTHER ==
[2020-09-14 14:50] LABS: HCT 42.3 % (37.2-46.3); HGB 13.2 g/dL (12.0-15.0); MCH 31.7 pg (27.0-32.0); MCHC 31.2 g/dL (32.0-37.0); MCV 101.4 fL (80.0-97.0); Mean Platelet Volume 12.9 fL (9.5-12.2); Platelet Count 178 X 10*3/uL (140-440); RBC 4.17 X 10*6/uL (4.10-5.20); RDW 13.5 % (11.5-14.5); WBC 7.15 X 10*3/uL (4.50-10.00)
[2020-09-14 16:56] LABS: African American GFR (CKD) 76.1 (60.0-200.0); Albumin/Globulin Ratio 1.82 (1.60-3.17); Anion Gap 9.8 mmol/L (4.00-12.00); Calcium 9.3 mg/dL (8.7-10.3); Carbon Dioxide 21.2 mmol/L (21.6-31.8); Chol/HDL Ratio 3.42; Globulin 2.2 g/dL (1.6-3.3); LDL Cholesterol,Calculated 71.2 mg/dL (0.0-131.0); Non-African American GFR(CKD) 65.6 (60.0-200.0); Potassium 3.9 mmol/L (3.5-5.5); Total Bilirubin 0.3 mg/dL (0.2-1.2); Total Protein 6.2 g/dL (6.2-8.2); VLDL Calculation 44.8 mg/dL (5.00-40.00)
[2020-09-14 17:04] LABS: T4, Free (Free Thyroxine) 1.2 ng/dL (0.80-1.80)
== END | disposition home or self-care (01) ==
LOC: LABWHC1 08:38
PROVIDERS: ATTEND Internal Medicine
DX: E23.0 Hypopituitarism (principal); E03.9 Hypothyroidism, unspecified; E27.1 Primary adrenocortical insufficiency; I10 Essential (primary) hypertension; E66.9 Obesity, unspecified
CPT/HCPCS: 36415; 80053; 80061; 82533; 84305; 84439; 84443; 85027

== ENCOUNTER → 2020-11-08 | Outpatient (CLI) | payer MEDICARE, OTHER ==
[2020-11-08 11:40] VITALS: BP 100/65; PULSE 80; RESP 18; TEMP 97.8
--- NOTE | 2020-11-08 12:51 | P.HPOB ---
History of Present Illness H&P Date: 11/08/20 Chief Complaint: Vaginal discharge and low abdominal pains for 1-2 months This is a 50-year-old G0 with an LMP of 10/25/2020. She states she has not been sexually active for many years. About 1-2 months ago she noticed a vaginal discharge which has been clear and thick with some odor. She also has noticed intermittent low abdominal pains which can feel sharp or dull and can last minutes to hours. She has also had frequent diarrhea for more than one month the low abdominal and pelvic pains seem to be worse when she needs to move her bowels. The pains can rated 6 out of 10 when they are bad and currently is 0 out of 10. She does not know if it is more on one side then the other when she experiences the pain. She has been taking an antibiotic for her face and she states it is for rosacea. She takes it once a day and believes it is doxycycline. Her stools can have an orange color. She states she typically has about 3 episodes of diarrhea per day. Review of Systems She has gained about 10 pounds over the past 9 months. She denies cardiac problems. Respiratory: Occasional asthma symptoms. GI: Frequent diarrhea for more than one month. See the HPI. : She has been experiencing urinary frequency without dysuria. Vaginal discharge as in the HPI. Past Medical History Past Medical History: Asthma, Chest Pain / Angina, Fibromyalgia, GERD/Reflux, Hearing Disorder / Deafness, Seizure Disorder Additional Past Medical History / Comment(s): MENIERES/LEGALLY BLIND/DEAFNESS LT EAR/DIFF HEARING RT/RT HEARING AID/HYPOGLYCEMIA/MIGRAINE/POOR CIRCULATION/VARICOSE VIENS/HYPOKALEMIA/TACHYCARDIA/SINUS PROBLEMS/IRRITABLE BOWEL SYNDROME/HIATALHERNIA. Adrenal insufficiency/ kelby's dis, thyroid issues. 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 History of Any Multi-Drug Resistant Organisms: None Reported Past Surgical History: Ear Surgery Additional Past Surgical History / Comment(s): SHUNT TO RT SIDE OF HEAD D/T HYDROCEPHALUS/BILAT CATARACT REMOVED, EGD/COLONOSCOPY Past Anesthesia/Blood Transfusion Reactions: Previous Problems w/ Anesthesia, Motion Sickness Past Psychological History: Anxiety, Depression Smoking Status: Never smoker Past Alcohol Use History: Rare Past Drug Use History: None Reported Additional History: She is single and has been with her boyfriend since 2006 and is not sexually active. She is disabled. - Past Family History Father Family Medical History: Coronary Artery Disease (CAD) Additional Family Medical History / Comment(s): Paternal aunt and paternal cousin had breast cancer. Paternal grandmother had ovarian cancer. Paternal cousin had endometriosis. Mother Family Medical History: Unable to Obtain Medications and Allergies Home Medications and Allergies Comment(s): She is on an antibiotic for facial rosacea and takes it once a day. She believes it is doxycycline. Home Medications Medication Instructions Recorded Confirmed Type Cetirizine HCl [Zyrtec] 10 mg PO DAILY 10/14/13 11/08/20 History Escitalopram [Lexapro] 10 mg PO DAILY 10/14/13 11/08/20 History Esomeprazole Magnesium [NexIUM] 40 mg PO DAILY 10/14/13 11/08/20 History Fluticasone/Salmeterol [Advair 1 puff INHALATION Q12HR PRN 10/14/13 11/08/20 History 100-50 Diskus] Folic Acid 1 mg PO DAILY 10/14/13 11/08/20 History Meclizine [Antivert] 1 caplet PO BID 10/14/13 11/08/20 History Metoprolol Succinate [Toprol XL] 50 mg PO DAILY 10/14/13 11/08/20 History Multivitamin [Multivitamins] 1 each PO DIRECTED 10/14/13 11/08/20 History [place] Oil 1 caplet PO BID 10/14/13 11/08/20 History Tiotropium 18 Mcg/Puff [Spiriva] 1 puff INHALATION DIRECTED 10/14/13 11/08/20 History Topiramate [Topamax] 100 mg PO BID 10/14/13 11/08/20 History Triamterene-Hctz 37.5-25Mg 1 each PO DAILY 10/14/13 11/08/20 History [Dyazide 37.5-25 Capsule] Xolair 225 mg SQ DIRECTED 10/14/13 11/08/20 History Zafirlukast [Accolate] 20 mg PO BID 10/14/13 11/08/20 History clonazePAM [KlonoPIN] 1 mg PO DAILY 10/14/13 11/08/20 History Potassium Chloride 8 meq PO DAILY 08/06/14 11/08/20 History Hydrocortisone [Cortef] 5 mg PO DIRECTED 09/02/15 11/08/20 History Levothyroxine Sodium [Synthroid] 100 mcg PO DAILY 06/29/16 11/08/20 History metFORMIN HCL [Glucophage] 500 mg PO BID 01/16/17 11/08/20 History Hydrocortisone 5 mg PO DAILY 06/04/18 11/08/20 History Gabapentin [Neurontin] 300 mg PO BID 01/27/20 11/08/20 History Triamcinolone 0.1% Cream [Kenalog 1 applicatio TOPICAL BID PRN #30 gm 02/03/20 11/08/20 Rx 0.1% Cream] Allergies Allergy/AdvReac Type Severity Reaction Status Date / Time iodine Allergy Severe Anaphylaxis Verified 11/08/20 10:54 diltiazem HCl [From Cardizem] Allergy Rash/Hives Verified 11/08/20 10:54 levetiracetam [From Keppra] Allergy Rash/Hives Verified 11/08/20 10:54 midodrine HCl Allergy Unknown Verified 11/08/20 10:54 [From ProAmatine] paroxetine HCl [From Paxil] Allergy Rash/Hives Verified 11/08/20 10:54 Sulfa (Sulfonamide Allergy Unknown Verified 11/08/20 10:54 Antibiotics) Exam Vital Signs Temp Pulse Resp BP Pulse Ox 11/08/20 11:23 97.8 F 80 18 100/65 96 Intake and Output 11/07/20 11/08/20 11/08/20 22:59 06:59 14:59 Other: Weight 102.512 kg Height 4 feet 11 inches, weight 226 pounds, BMI 45.6. This is a well-developed obese white female who is alert and oriented 3 in no acute distress. Abdomen: Obese, soft without palpable masses. There are 2+ bowel sounds. There is mild mid to right lower quadrant tenderness without rebound tenderness. Pelvic: Normal external genitalia. Cervix and vagina reveals a small to moderate amount of thick grayish discharge the discharge has a consistency of thick saliva. The cervix appears normal. There is no cervical motion tenderness. The uterus is mid position and nongravid size and nontender. There are no palpable adnexal masses or tenderness. He shouldn't is somewhat limited secondary to her size. Impression: 1. 50-year-old perimenopausal female who states she has not been sexually active for many years with vaginal discharge. This seems somewhat suspicious for bacterial vaginosis. 2. Diarrhea which has been going on for more than one month. This may be associated with her chronic antibiotic use which she has used for many weeks for rosacea. Differential diagnosis will include pseudomembranous colitis or other type of colitis or irritable bowel. 3. Greater than 1 month history of low abdominal and pelvic pains with mild right lower quadrant tenderness without rebound tenderness. Differential diagnosis includes GI related pains including possible ulcerative colitis and at this time I doubt acute appendicitis. I also doubt the pains are directly related to a gynecologic problem since she does not have cervical motion tenderness or tenderness of the uterus or adnexal regions. 4. Urinary frequency. Possible UTI which could also cause pain, but I don't think is likely the cause for her low abdominal and pelvic pain. Plan: 1. Affirm vaginitis panel will be run on the vaginal discharge. This will check for evidence of arlene, Gardnerella and trichomonas. 2. A urine sample has been obtained for urinalysis and culture with sensitivities. 3. A stool/diarrhea sample will be obtained and will be checked for C. difficile and also for a stool culture. 4. Pelvic ultrasound was also recommended and the order slip was given to the patient for this. Total time spent with the patient 35 minutes.
--- NOTE | 2020-11-09 14:13 | P.PN ---
Progress Note - Text Progress Note Date: 11/09/20 OUTPATIENT FOLLOW-UP NOTE TEST(S)/RESULTS: Test results from 11/08/2020 include a firm vaginitis panel showing positive alma rosa and positive Gardnerella with negative Trichomonas. Urinalysis showed large amount of yeast. METHOD OF NOTIFICATION: The patient was notified by phone. PATIENT COMMENTS: She states she has not yet collected a stool/diarrhea sample yet. DIAGNOSIS: Alma Rosa vaginitis with possible bacterial vaginosis as well. DISCUSSION: My experience has been when there is alma rosa and bacterial vaginosis, treating the candidate typically resolves the symptoms. She will be treated with Diflucan 150 mg by mouth every 48 hours 2 doses. The electronic prescription was sent to [facility] on . If her symptoms completely resolve after the first dose, she can hold off on taking the second dose. She will bring in her stool sample and if this test positive for C. difficile toxin, we will consider treatment with metronidazole. We will also see if she continues to have symptoms of the vaginal discharge after the Diflucan treatment. She is also planning to get the pelvic ultrasound as recommended. PLAN: As above.
== END ==
LOC: WWCWWP 10:37
PROVIDERS: ATTEND Obstetrics & Gynecology
DX: B37.3 Candidiasis of vulva and vagina (principal); Z88.2 Allergy status to sulfonamides; Z91.041 Radiographic dye allergy status; Z88.8 Allergy status to other drugs, medicaments and biological substances

== ENCOUNTER 2020-12-07 14:20 | Emergency (ER) | payer MEDICARE, OTHER ==
[2020-12-07 15:28] VITALS: BP 117/72; PULSE 91; RESP 20; TEMP 97.8
--- NOTE | 2020-12-07 16:46 | US ---
EXAMINATION TYPE: US venous doppler duplex LE LT DATE OF EXAM: 12/07/2020 4:37 PM COMPARISON: NONE CLINICAL HISTORY: pain, edema. left leg pain SIDE PERFORMED: Left TECHNIQUE: The lower extremity deep venous system is examined utilizing real time linear array sonog urbano with graded compression, doppler sonography and color-flow sonography. VESSELS IMAGED: Common Femoral Vein Deep Femoral Vein Greater Saphenous Vein * Femoral Vein Popliteal Vein Small Saphenous Vein * Proximal Calf Veins (* superficial vessels) Left Leg: Appears negative for DVT IMPRESSION: No evidence of deep vein thrombosis in the left leg.
--- NOTE | 2020-12-07 17:37 | ED ---
General Adult HPI - General Chief complaint: Extremity Problem,Nontraumatic Stated complaint: Poss blood clot Time Seen by Provider: 12/07/20 15:29 Source: patient, RN notes reviewed Mode of arrival: ambulatory Limitations: no limitations - History of Present Illness Initial comments: 50-year-old female presents to the emergency room for a chief complaint of leg swelling. Patient states she has had left leg swelling for several months. States she is starting to have some pain in the left knee. Patient reports she saw her primary care doctor for this and was told she should probably has an ultrasound. Therefore patient presented to the emergency room. Patient denies any chest pain or shortness of breath. Denies fevers.Patient has no other c omplaints at this time including shortness of breath, chest pain, abdominal pain, nausea or vomiting, headache, or visual changes. - Related Data Home Medications Medication Instructions Recorded Confirmed Cetirizine HCl [Zyrtec] 10 mg PO DAILY 10/14/13 12/07/20 Escitalopram [Lexapro] 10 mg PO DAILY 10/14/13 12/07/20 Esomeprazole Magnesium [NexIUM] 40 mg PO DAILY 10/14/13 12/07/20 Fluticasone/Salmeterol [Advair 1 puff INHALATION Q12HR PRN 10/14/13 12/07/20 100-50 Diskus] Folic Acid 1 mg PO DAILY 10/14/13 12/07/20 Meclizine [Antivert] 1 caplet PO BID 10/14/13 12/07/20 Metoprolol Succinate [Toprol XL] 50 mg PO DAILY 10/14/13 12/07/20 Multivitamin [Multivitamins] 1 each PO DIRECTED 10/14/13 12/07/20 [place] Oil 1 caplet PO BID 10/14/13 12/07/20 Tiotropium 18 Mcg/Puff [Spiriva] 1 puff INHALATION DIRECTED 10/14/13 12/07/20 Topiramate [Topamax] 100 mg PO BID 10/14/13 12/07/20 Triamterene-Hctz 37.5-25Mg 1 each PO DAILY 10/14/13 12/07/20 [Dyazide 37.5-25 Capsule] Xolair 225 mg SQ DIRECTED 10/14/13 12/07/20 Zafirlukast [Accolate] 20 mg PO BID 10/14/13 12/07/20 clonazePAM [KlonoPIN] 1 mg PO DAILY 10/14/13 12/07/20 Potassium Chloride 8 meq PO DAILY 08/06/14 12/07/20 Hydrocortisone [Cortef] 5 mg PO DIRECTED 09/02/15 12/07/20 Levothyroxine Sodium [Synthroid] 100 mcg PO DAILY 06/29/16 12/07/20 metFORMIN HCL [Glucophage] 500 mg PO BID 01/16/17 12/07/20 Hydrocortisone 5 mg PO DAILY 06/04/18 12/07/20 Gabapentin [Neurontin] 300 mg PO BID 01/27/20 12/07/20 Previous Rx's Medication Instructions Recorded Triamcinolone 0.1% Cream [Kenalog 1 applicatio TOPICAL BID PRN #30 gm 02/03/20 0.1% Cream] Fluconazole [Diflucan] 150 mg PO DIRECTED #2 tab 11/09/20 Nystatin 100,000 Unit/gm Powd 1 applic TOPICAL BID #1 bottle 11/22/20 [Mycostatin Powder] metroNIDAZOLE [Flagyl] 500 mg PO BID 7 Days #14 tab 11/22/20 Terconazole 0.8% Vaginal Cream 1 applic VAGINAL HS 3 Days #1 tube 11/30/20 [Terazol 3] Allergies Allergy/AdvReac Type Severity Reaction Status Date / Time iodine Allergy Severe Anaphylaxis Verified 12/07/20 15:28 diltiazem HCl [From Cardizem] Allergy Rash/Hives Verified 12/07/20 15:28 levetiracetam [From Keppra] Allergy Rash/Hives Verified 12/07/20 15:28 midodrine HCl Allergy Unknown Verified 12/07/20 15:28 [From ProAmatine] paroxetine HCl [From Paxil] Allergy Rash/Hives Verified 12/07/20 15:28 Sulfa (Sulfonamide Allergy Unknown Verified 12/07/20 15:28 Antibiotics) Review of Systems ROS Statement: Those systems with pertinent positive or pertinent negative responses have been documented in the HPI. ROS Other: All systems not noted in ROS Statement are negative. Past Medical History Past Medical History: Asthma, Chest Pain / Angina, Fibromyalgia, GERD/Reflux, Hearing Disorder / Deafness, Seizure Disorder Additional Past Medical History / Comment(s): MENIERES/LEGALLY BLIND/DEAFNESS LT EAR/DIFF HEARING RT/RT HEARING AID/HYPOGLYCEMIA/MIGRAINE/POOR CIRCULATION/VARICOSE VIENS/HYPOKALEMIA/TACHYCARDIA/SINUS PROBLEMS/IRRITABLE BOWEL SYNDROME/HIATALHERNIA. Adrenal insufficiency/ kelby's dis, thyroid issues. 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 History of Any Multi-Drug Resistant Organisms: None Reported Past Surgical History: Ear Surgery Additional Past Surgical History / Comment(s): SHUNT TO RT SIDE OF HEAD D/T HYDROCEPHALUS/BILAT CATARACT REMOVED, EGD/COLONOSCOPY Past Anesthesia/Blood Transfusion Reactions: Previous Problems w/ Anesthesia, Motion Sickness Past Psychological History: Anxiety, Depression Smoking Status: Never smoker Past Alcohol Use History: None Reported Past Drug Use History: None Reported - Past Family History Father Family Medical History: Coronary Artery Disease (CAD) Additional Family Medical History / Comment(s): Paternal aunt and paternal cousin had breast cancer. Paternal grandmother had ovarian cancer. Paternal cousin had endometriosis. Mother Family Medical History: Unable to Obtain General Exam Limitations: no limitations General appearance: alert, in no apparent distress Head exam: Present: atraumatic, normocephalic, normal inspection Eye exam: Present: normal appearance ENT exam: Present: normal exam, mucous membranes moist Neck exam: Present: normal inspection. Absent: tenderness, meningismus, lymphadenopathy Respiratory exam: Present: normal lung sounds bilaterally. Absent: respiratory distress, wheezes, rales, rhonchi, stridor Cardiovascular Exam: Present: regular rate, normal rhythm, normal heart sounds. Absent: systolic murmur, diastolic murmur, rubs, gallop, clicks GI/Abdominal exam: Present: soft, normal bowel sounds. Absent: distended, tenderness, guarding, rebound, rigid Extremities exam: Present: full ROM (Full range of motion of the left leg.), normal capillary refill (cap refill less than 2 seconds, 80 pulse 2+.), other (Minimal edema noted of the left lower leg. Nonpitting.). Absent: tenderness, joint swelling, calf tenderness Course Vital Signs 12/07/20 15:25 Temperature 97.8 F Pulse Rate 91 Respiratory 20 Rate Blood Pressure 117/72 O2 Sat by Pulse 96 Oximetry Medical Decision Making - Medical Decision Making Patient has some swelling of the left leg. No sign of infection. No increased warmth or erythema. Minimal edema of the left leg. Full range of motion. Ultrasound shows no evidence of DVT in the left leg. Patient was also evaluated by Dr Zavala, agreeable to care plan. Disposition Clinical Impression: Unilateral edema of lower extremity Disposition: HOME SELF-CARE Condition: Good Instructions (If sedation given, give patient instructions): Leg Edema (ED) Additional Instructions: Please follow-up with your primary care doctor as well as orthopedics. You may need to follow up with vascular as well. If you have worsening symptoms return to the emergency room. Is patient prescribed a controlled substance at d/c from ED?: No Referrals: Ibrahima Smith DO [Primary Care Provider] - 1-2 days Ken Love DO [Doctor of Osteopathic Medicine] - 1-2 days Time of Disposition: 17:37
== END 2020-12-07 17:44 | disposition home or self-care (01) ==
LOC: EC 14:20
DX: R60.0 Localized edema (principal); M25.562 Pain in left knee; G40.909 Epilepsy, unspecified, not intractable, without status epilepticus; H54.8 Legal blindness, as defined in USA; J45.909 Unspecified asthma, uncomplicated; K21.9 Gastro-esophageal reflux disease without esophagitis; M79.7 Fibromyalgia; Z79.51 Long term (current) use of inhaled steroids; Z88.2 Allergy status to sulfonamides; Z88.8 Allergy status to other drugs, medicaments and biological substances; Z79.899 Other long term (current) drug therapy
CPT/HCPCS: 99283

== ENCOUNTER → 2020-12-07 | Outpatient (CLI) | payer MEDICARE, OTHER ==
--- NOTE | 2020-12-07 12:33 | XR ---
EXAMINATION TYPE: XR foot complete RT DATE OF EXAM: 12/07/2020 CLINICAL HISTORY: Pain and bump on heel TECHNIQUE: Frontal, lateral, and oblique images of the right foot are obtained. COMPARISON: None FINDINGS: There is no acute fracture/dislocation evident in the right foot. There are marked degener ative changes of the right first metatarsophalangeal joint with bunion formation. A calcaneal spur is noted. IMPRESSION: 1. Calcaneal spur. 2. First MTP degenerative changes with bunion.
--- NOTE | 2020-12-07 12:34 | XR ---
EXAMINATION TYPE: XR knee 4V LT DATE OF EXAM: 12/07/2020 CLINICAL HISTORY: Pain and bump on back of knee TECHNIQUE: Three views of the left knee are obtained. COMPARISON: None. FINDINGS: There is no acute fracture/dislocation evident in left knee. The tri-compartment joint sp aces appear within normal limits. The overlying soft tissue appears unremarkable. IMPRESSION: There is no acute fracture or dislocation in the left knee. If there is clinical concern for soft tissue mass, MRI with and without contrast may be helpful for further evaluation.
== END | disposition home or self-care (01) ==
LOC: RADXRMAIN 11:52
PROVIDERS: ATTEND Family Medicine
DX: M77.31 Calcaneal spur, right foot (principal); M21.611 Bunion of right foot; M20.5X1 Other deformities of toe(s) (acquired), right foot

== ENCOUNTER 2020-12-21 03:00 | Emergency (ER) | payer MEDICARE, OTHER ==
[2020-12-21 03:08] VITALS: RESP 18
--- NOTE | 2020-12-21 03:13 | ED ---
Skin/Abscess/FB HPI - General Chief complaint: Skin/Abscess/Foreign Body Stated complaint: Possible allergic reaction Time Seen by Provider: 12/21/20 03:10 Source: patient, RN notes reviewed, old records reviewed Mode of arrival: ambulatory Limitations: no limitations - History of Present Illness Initial comments: This is a 50-year-old female DF for evaluation. Patient hives like reaction. Patient is unsure of exposure that may have caused ALLERGIC reaction. He has ALLERGIC reaction to legs and abdomen. Patient was given steroids earlier today that has not improved. No shortness of breath weakness, unknown exposure MD complaint: rash -: days(s) Tetanus Up to Date: yes Location: chest, LLE, RLE Severity: moderate Severity scale (1-10): 4 Quality: other (Itching) Consistency: intermittent Improves with: none Worsens with: none Context: none Associated symptoms: itching Treatments Prior to Arrival: Benadryl, corticosteroid - Related Data Home Medications Medication Instructions Recorded Confirmed Cetirizine HCl [Zyrtec] 10 mg PO DAILY 10/14/13 12/21/20 Escitalopram [Lexapro] 10 mg PO DAILY 10/14/13 12/21/20 Esomeprazole Magnesium [NexIUM] 40 mg PO DAILY 10/14/13 12/21/20 Fluticasone/Salmeterol [Advair 1 puff INHALATION Q12HR PRN 10/14/13 12/21/20 100-50 Diskus] Folic Acid 1 mg PO DAILY 10/14/13 12/21/20 Meclizine [Antivert] 1 caplet PO BID 10/14/13 12/21/20 Metoprolol Succinate [Toprol XL] 50 mg PO DAILY 10/14/13 12/21/20 Multivitamin [Multivitamins] 1 each PO DIRECTED 10/14/13 12/21/20 [place]borne Oil 1 caplet PO BID 10/14/13 12/21/20 Tiotropium 18 Mcg/Puff [Spiriva] 1 puff INHALATION DIRECTED 10/14/13 12/21/20 Topiramate [Topamax] 100 mg PO BID 10/14/13 12/21/20 Triamterene-Hctz 37.5-25Mg 1 each PO DAILY 10/14/13 12/21/20 [Dyazide 37.5-25 Capsule] Xolair 225 mg SQ DIRECTED 10/14/13 12/21/20 Zafirlukast [Accolate] 20 mg PO BID 10/14/13 12/21/20 clonazePAM [KlonoPIN] 1 mg PO DAILY 10/14/13 12/21/20 Potassium Chloride 8 meq PO DAILY 08/06/14 12/21/20 Hydrocortisone [Cortef] 5 mg PO DIRECTED 09/02/15 12/21/20 Levothyroxine Sodium [Synthroid] 100 mcg PO DAILY 06/29/16 12/21/20 metFORMIN HCL [Glucophage] 500 mg PO BID 01/16/17 12/21/20 Hydrocortisone 5 mg PO DAILY 06/04/18 12/21/20 Gabapentin [Neurontin] 300 mg PO BID 01/27/20 12/21/20 Previous Rx's Medication Instructions Recorded Triamcinolone 0.1% Cream [Kenalog 1 applicatio TOPICAL BID PRN #30 gm 02/03/20 0.1% Cream] Fluconazole [Diflucan] 150 mg PO DIRECTED #2 tab 11/09/20 Nystatin 100,000 Unit/gm Powd 1 applic TOPICAL BID #1 bottle 11/22/20 [Mycostatin Powder] metroNIDAZOLE [Flagyl] 500 mg PO BID 7 Days #14 tab 11/22/20 Terconazole 0.8% Vaginal Cream 1 applic VAGINAL HS 3 Days #1 tube 11/30/20 [Terazol 3] Famotidine [Pepcid] 20 mg PO BID #14 tablet 12/21/20 hydrOXYzine HCL [Atarax] 25 mg PO TID PRN #15 tab 12/21/20 predniSONE 50 mg PO DAILY #5 tab 12/21/20 Allergies Allergy/AdvReac Type Severity Reaction Status Date / Time iodine Allergy Severe Anaphylaxis Verified 12/21/20 11:08 diltiazem HCl [From Cardizem] Allergy Rash/Hives Verified 12/21/20 11:08 levetiracetam [From Keppra] Allergy Rash/Hives Verified 12/21/20 11:08 midodrine HCl Allergy Unknown Verified 12/21/20 11:08 [From ProAmatine] paroxetine HCl [From Paxil] Allergy Rash/Hives Verified 12/21/20 11:08 Sulfa (Sulfonamide Allergy Unknown Verified 12/21/20 11:08 Antibiotics) Review of Systems ROS Statement: Those systems with pertinent positive or pertinent negative responses have been documented in the HPI. ROS Other: All systems not noted in ROS Statement are negative. Past Medical History Past Medical History: Asthma, Chest Pain / Angina, Fibromyalgia, GERD/Reflux, Hearing Disorder / Deafness, Seizure Disorder Additional Past Medical History / Comment(s): MENIERES/LEGALLY BLIND/DEAFNESS LT EAR/DIFF HEARING RT/RT HEARING AID/HYPOGLYCEMIA/MIGRAINE/POOR CIRCULATION/VARICOSE VIENS/HYPOKALEMIA/TACHYCARDIA/SINUS PROBLEMS/IRRITABLE BOWEL SYNDROME/HIATALHERNIA. Adrenal insufficiency/ kelby's dis, thyroid issues History of Any Multi-Drug Resistant Organisms: None Reported Past Surgical History: Ear Surgery Additional Past Surgical History / Comment(s): SHUNT TO RT SIDE OF HEAD D/T HYDROCEPHALUS/BILAT CATARACT REMOVED, EGD/COLONOSCOPY Past Anesthesia/Blood Transfusion Reactions: Previous Problems w/ Anesthesia, Motion Sickness Past Psychological History: Anxiety, Depression Smoking Status: Never smoker Past Alcohol Use History: Rare Past Drug Use History: None Reported - Past Family History Father Family Medical History: Coronary Artery Disease (CAD) Additional Family Medical History / Comment(s): Paternal aunt and paternal cousin had breast cancer. Paternal grandmother had ovarian cancer. Paternal cousin had endometriosis. Mother Family Medical History: Unable to Obtain General Exam Limitations: no limitations General appearance: alert, in no apparent distress Head exam: Present: atraumatic, normocephalic, normal inspection Eye exam: Present: normal appearance, PERRL, EOMI. Absent: scleral icterus, conjunctival injection, periorbital swelling ENT exam: Present: normal exam, mucous membranes moist Neck exam: Present: normal inspection. Absent: tenderness, meningismus, lymphadenopathy Respiratory exam: Present: normal lung sounds bilaterally. Absent: respiratory distress, wheezes, rales, rhonchi, stridor Cardiovascular Exam: Present: regular rate, normal rhythm, normal heart sounds. Absent: systolic murmur, diastolic murmur, rubs, gallop, clicks GI/Abdominal exam: Present: soft, normal bowel sounds. Absent: distended, tenderness, guarding, rebound, rigid Extremities exam: Present: normal inspection, full ROM, normal capillary refill. Absent: tenderness, pedal edema, joint swelling, calf tenderness Back exam: Present: normal inspection Neurological exam: Present: alert, oriented X3, CN II-XII intact Psychiatric exam: Present: normal affect, normal mood Skin exam: Present: warm, dry, intact, normal color, urticaria (Rash to abdomen and legs). Absent: rash Course Vital Signs 12/21/20 12/21/20 03:03 04:29 Temperature 98.4 F 98.5 F Pulse Rate 72 74 Respiratory 18 18 Rate Blood Pressure 108/65 105/72 O2 Sat by Pulse 96 99 Oximetry - Reevaluation(s) Reevaluation #1: Medical records reviewed Patient symptoms are improved significantly here in the ER Patient in no acute distress Patient informed of results and questions answered Medical Decision Making - Medical Decision Making 50-year-old female with urticarial ALLERGIC reaction. Symptoms improved here in the ER and she is okay for discharge Disposition Clinical Impression: Urticaria Disposition: HOME SELF-CARE Condition: Good Instructions (If sedation given, give patient instructions): Urticaria (ED) Prescriptions: hydrOXYzine HCL [Atarax] 25 mg PO TID PRN #15 tab PRN Reason: Itching Famotidine [Pepcid] 20 mg PO BID #14 tablet predniSONE 50 mg PO DAILY #5 tab Is patient prescribed a controlled substance at d/c from ED?: No Referrals: Ibrahima Smith DO [Primary Care Provider] - 1-2 days
[2020-12-21] MEDS ORDERED: dexAMETHasone 2 MG TAB PO STA (04:00)
[2020-12-21] MEDS ORDERED: hydrOXYzine HCL 25 MG TAB PO STA (04:00)
[2020-12-21] MEDS ORDERED: FAMOTIDINE 20 MG TAB PO STA (04:00)
[2020-12-21] MEDS ORDERED: HYDROCORTISONE 1% CREAM 30 GM TUBE TOPICAL STA (04:00)
[2020-12-21 04:30] VITALS: BP 105/72; PULSE 74; TEMP 98.5
== END 2020-12-21 04:31 | disposition home or self-care (01) ==
LOC: EC 03:00
DX: L50.0 Allergic urticaria (principal); G40.909 Epilepsy, unspecified, not intractable, without status epilepticus; H54.8 Legal blindness, as defined in USA; J45.909 Unspecified asthma, uncomplicated; K21.9 Gastro-esophageal reflux disease without esophagitis; M79.7 Fibromyalgia; Z79.51 Long term (current) use of inhaled steroids; Z79.52 Long term (current) use of systemic steroids; Z79.84 Long term (current) use of oral hypoglycemic drugs; Z88.2 Allergy status to sulfonamides; Z88.8 Allergy status to other drugs, medicaments and biological substances
CPT/HCPCS: 99282; J8540

== ENCOUNTER → 2021-01-18 | Outpatient (CLI) | payer MEDICARE, OTHER ==
[2021-01-18 17:36] LABS: Basophils # (A) 0.07 X 10*3/uL (0.00-0.10); Eosinophils # (A) 0.32 X 10*3/uL (0.04-0.35); Eosinophils % (A) 4.4 %; HCT 42.3 % (37.2-46.3); HGB 13.1 g/dL (12.0-15.0); Lymphocytes # (A) 2.94 X 10*3/uL (0.90-5.00); Lymphocytes % (A) 40.4 %; MCV 100.2 fL (80.0-97.0); Mean Platelet Volume 12.5 fL (9.5-12.2); Neutrophils % (A) 42.5 %; Platelet Count 151 X 10*3/uL (140-440); RBC 4.22 X 10*6/uL (4.10-5.20); WBC 7.28 X 10*3/uL (4.50-10.00)
[2021-01-18 20:54] LABS: Hemoglobin A1C 5.8 % (4.0-6.0)
[2021-01-18 22:48] LABS: African American GFR (CKD) 86.4 (60.0-200.0); Albumin 3.9 g/dL (3.80-4.90); Albumin/Globulin Ratio 1.56 (1.60-3.17); Anion Gap 11.1 mmol/L (4.00-12.00); BUN/Creat Ratio 25.56 Ratio (12.00-20.00); Calcium 8.6 mg/dL (8.7-10.3); Carbon Dioxide 21.9 mmol/L (21.6-31.8); Globulin 2.5 g/dL (1.6-3.3); Non-African American GFR(CKD) 74.6 (60.0-200.0); Potassium 3.4 mmol/L (3.5-5.5); Total Bilirubin 0.3 mg/dL (0.3-1.2); Total Protein 6.4 g/dL (6.2-8.2)
== END | disposition home or self-care (01) ==
LOC: LABWHC1 08:05
PROVIDERS: ATTEND Internal Medicine
DX: R53.83 Other fatigue (principal); E55.9 Vitamin D deficiency, unspecified; E03.9 Hypothyroidism, unspecified; E53.8 Deficiency of other specified B group vitamins; E23.0 Hypopituitarism; E27.1 Primary adrenocortical insufficiency
CPT/HCPCS: 36415; 80053; 82306; 82533; 82607; 83036; 84305; 84439; 84443; 85025

== ENCOUNTER → 2021-01-27 | Outpatient (CLI) | payer MEDICARE, OTHER ==
[2021-01-30 14:56] LABS: Broccoli IgE <0.10 kU/L (<0.10); Broccoli IgE Class CLASS 0
== END | disposition home or self-care (01) ==
LOC: LABWHC1 09:26
PROVIDERS: ATTEND Allergy & Immunology
DX: T78.1XXA Other adverse food reactions, not elsewhere classified, initial encounter (principal)
CPT/HCPCS: 36415; 82785; 86003

== ENCOUNTER → 2021-04-19 | Outpatient (CLI) | payer MEDICARE, OTHER ==
[2021-04-19 11:11] LABS: Basophils # (A) 0.02 X 10*3/uL (0.00-0.10); Basophils % (A) 0.2 %; Eosinophils # (A) 0.02 X 10*3/uL (0.04-0.35); Eosinophils % (A) 0.2 %; HCT 39.6 % (37.2-46.3); HGB 12.8 g/dL (12.0-15.0); Lymphocytes # (A) 1.97 X 10*3/uL (0.90-5.00); Lymphocytes % (A) 18.2 %; MCH 31.8 pg (27.0-32.0); MCHC 32.3 g/dL (32.0-37.0); MCV 98.3 fL (80.0-97.0); Monocytes # (A) 0.93 X 10*3/uL (0.20-1.00); Monocytes % (A) 8.6 %; Neutrophils # (A) 7.71 X 10*3/uL (1.80-7.70); Neutrophils % (A) 71.4 %; Platelet Count 168 X 10*3/uL (140-440); RBC 4.03 X 10*6/uL (4.10-5.20); RDW 13.6 % (11.5-14.5)
[2021-04-20 02:26] LABS: ALT 48 U/L (8-44); AST 20 U/L (13-35); African American GFR (CKD) 81.8 (60.0-200.0); Albumin/Globulin Ratio 1.62 (1.60-3.17); Alkaline Phosphatase 66 U/L (41-126); BUN/Creat Ratio 23.18 Ratio (12.00-20.00); Blood Urea Nitrogen 21.7 mg/dL (9.0-27.0); Carbon Dioxide 17.7 mmol/L (21.6-31.8); Chloride 105 mmol/L (96-109); Chol/HDL Ratio 2.96 Ratio; Globulin 2.5 g/dL (1.6-3.3); Glucose 126 mg/dL (70-110); LDL Cholesterol,Calculated 56.1 mg/dL (0.0-131.0); Non-African American GFR(CKD) 70.6 (60.0-200.0); Potassium 3.7 mmol/L (3.5-5.5); Sodium 138 mmol/L (135-145); Total Bilirubin <0.20 mg/dL (0.30-1.20); Total Protein 6.4 g/dL (6.2-8.2)
== END | disposition home or self-care (01) ==
LOC: LABWHC1 07:57
PROVIDERS: ATTEND Internal Medicine
DX: E23.0 Hypopituitarism (principal); E03.9 Hypothyroidism, unspecified; E27.40 Unspecified adrenocortical insufficiency
CPT/HCPCS: 36415; 80053; 80061; 82024; 82306; 82533; 82607; 84305; 84439; 84443; 84481; 85025

== ENCOUNTER → 2021-05-17 | Outpatient (CLI) | payer MEDICARE, OTHER ==
[2021-05-17 19:00] LABS: Basophils # (A) 0.05 X 10*3/uL (0.00-0.10); Basophils % (A) 0.7 %; Eosinophils % (A) 2.6 %; HCT 43.2 % (37.2-46.3); HGB 13.6 g/dL (12.0-15.0); Lymphocytes # (A) 3.33 X 10*3/uL (0.90-5.00); MCH 31.3 pg (27.0-32.0); MCHC 31.5 g/dL (32.0-37.0); MCV 99.3 fL (80.0-97.0); Mean Platelet Volume 12.6 fL (9.5-12.2); Monocytes # (A) 0.56 X 10*3/uL (0.20-1.00); Monocytes % (A) 7.4 %; Neutrophils # (A) 3.39 X 10*3/uL (1.80-7.70); Neutrophils % (A) 44.9 %; Platelet Count 199 X 10*3/uL (140-440); RBC 4.35 X 10*6/uL (4.10-5.20); RDW 14.4 % (11.5-14.5); WBC 7.56 X 10*3/uL (4.50-10.00)
[2021-05-17 19:19] LABS: African American GFR (CKD) 86.4 (60.0-200.0); Albumin 4.2 g/dL (3.8-4.9); Albumin/Globulin Ratio 1.61 (1.60-3.17); Anion Gap 14.1 mmol/L (10.00-18.00); BUN/Creat Ratio 20.56 Ratio (12.00-20.00); Blood Urea Nitrogen 18.4 mg/dL (9.0-27.0); Calcium 9.2 mg/dL (8.7-10.3); Carbon Dioxide 22.5 mmol/L (20.0-27.5); Globulin 2.6 g/dL (1.6-3.3); Non-African American GFR(CKD) 74.5 (60.0-200.0); Potassium 3.5 mmol/L (3.5-5.5); Total Bilirubin 0.2 mg/dL (0.30-1.20); Total Protein 6.8 g/dL (6.2-8.2)
== END | disposition home or self-care (01) ==
LOC: LABWHC1 10:44
PROVIDERS: ATTEND Family Medicine
DX: J45.30 Mild persistent asthma, uncomplicated (principal); R19.7 Diarrhea, unspecified
CPT/HCPCS: 36415; 80053; 84443; 85025; 87045; 87046; 87328; 87329

== ENCOUNTER → 2021-05-29 | Outpatient (CLI) | payer MEDICARE, OTHER ==
--- NOTE | 2021-05-31 12:12 | MM ---
Reason for exam: screening (asymptomatic). Last mammogram was performed 1 year and 2 months ago. History: Family history of breast cancer in aunt and breast cancer in cousin. Physical Findings: A clinical breast exam by your physician is recommended on an annual basis and results should be correlated with mammographic findings. MG 3D Screening Mammo W/Cad Bilateral CC and MLO view(s) were taken. Prior study comparison: April 05, 2020, bilateral MG 3d diag mammo w/cad [facility]. April 01, 2019, bilateral MG 3d screening mammo w/cad. There are scattered fibroglandular densities. No significant changes when compared with prior studies. ASSESSMENT: Negative, BI-RAD 1 RECOMMENDATION: Routine screening mammogram of both breasts in 1 year.
== END | disposition home or self-care (01) ==
LOC: RADMAMWWP 14:55
PROVIDERS: ATTEND Obstetrics & Gynecology
DX: Z12.31 Encounter for screening mammogram for malignant neoplasm of breast (principal)
CPT/HCPCS: 77063; 77067

== ENCOUNTER 2021-08-06 10:10 | Emergency (ER) | payer MEDICARE, OTHER ==
[2021-08-06 10:16] VITALS: RESP 16; TEMP 97.8
--- NOTE | 2021-08-06 10:53 | ED ---
Skin/Abscess/FB HPI - General Chief complaint: Skin/Abscess/Foreign Body Stated complaint: Abd pain Time Seen by Provider: 08/06/21 10:23 Source: patient Mode of arrival: ambulatory Limitations: no limitations - History of Present Illness Initial comments: This is a 51 year old female who presents to the emergency department with a skin abscess on the left lower abdomen. She was in the emergency department 4 days ago for evaluation and was put on Bactrim and Keflex. Yesterday the abscess opened up and started draining. She initially had purulent drainage which then turned into blood. It has also become much more painful and more erythematous. She has not taken her temperature, but states that she has felt a little cold. MD complaint: abscess/boil Treatments Prior to Arrival: bandages, antibiotic - Related Data Home Medications Medication Instructions Recorded Confirmed Cetirizine HCl [Zyrtec] 10 mg PO DAILY 10/14/13 07/26/21 Escitalopram [Lexapro] 10 mg PO DAILY 10/14/13 07/26/21 Esomeprazole Magnesium [NexIUM] 40 mg PO DAILY 10/14/13 07/26/21 Fluticasone/Salmeterol [Advair 1 puff INHALATION Q12HR PRN 10/14/13 07/26/21 100-50 Diskus] Folic Acid 1 mg PO DAILY 10/14/13 07/26/21 Meclizine [Antivert] 1 caplet PO BID 10/14/13 07/26/21 Metoprolol Succinate [Toprol XL] 50 mg PO DAILY 10/14/13 07/26/21 Multivitamin [Multivitamins] 1 each PO DIRECTED 10/14/13 07/26/21 Hortense Oil 1 caplet PO BID 10/14/13 07/26/21 Tiotropium 18 Mcg/Puff [Spiriva] 1 puff INHALATION DIRECTED 10/14/13 07/26/21 Topiramate [Topamax] 100 mg PO BID 10/14/13 07/26/21 Triamterene-Hctz 37.5-25Mg 1 each PO DAILY 10/14/13 07/26/21 [Dyazide 37.5-25 Capsule] Xolair 225 mg SQ DIRECTED 10/14/13 07/26/21 Zafirlukast [Accolate] 20 mg PO BID 10/14/13 07/26/21 clonazePAM [KlonoPIN] 1 mg PO DAILY 10/14/13 07/26/21 Potassium Chloride [Potassium 8 meq PO DAILY 08/06/14 07/26/21 Chloride ER] Hydrocortisone [Cortef] 5 mg PO DIRECTED 09/02/15 07/26/21 Levothyroxine Sodium [Synthroid] 100 mcg PO DAILY 06/29/16 07/26/21 metFORMIN HCL [Glucophage] 500 mg PO BID 01/16/17 07/26/21 Hydrocortisone 5 mg PO DAILY 06/04/18 07/26/21 Gabapentin [Neurontin] 300 mg PO BID 01/27/20 07/26/21 Previous Rx's Medication Instructions Recorded Triamcinolone 0.1% Cream [Kenalog 1 applicatio TOPICAL BID PRN #30 gm 02/03/20 0.1% Cream] Nystatin 100,000 Unit/gm Powd 1 applic TOPICAL BID #1 bottle 11/22/20 [Mycostatin Powder] Terconazole 0.8% Vaginal Cream 1 applic VAGINAL HS 3 Days #1 tube 11/30/20 [Terazol 3] Famotidine [Pepcid] 20 mg PO BID #14 tablet 12/21/20 hydrOXYzine HCL [Atarax] 25 mg PO TID PRN #15 tab 12/21/20 predniSONE 50 mg PO DAILY #5 tab 12/21/20 Fluconazole [Diflucan] 150 mg PO DIRECTED #2 tab 01/13/21 Fluconazole [Diflucan] 150 mg PO DIRECTED #2 tab 02/07/21 Allergies Allergy/AdvReac Type Severity Reaction Status Date / Time iodine Allergy Severe Anaphylaxis Verified 08/06/21 10:16 diltiazem HCl [From Cardizem] Allergy Rash/Hives Verified 08/06/21 10:16 levetiracetam [From Keppra] Allergy Rash/Hives Verified 08/06/21 10:16 midodrine HCl Allergy Unknown Verified 08/06/21 10:16 [From ProAmatine] paroxetine HCl [From Paxil] Allergy Rash/Hives Verified 08/06/21 10:16 Sulfa (Sulfonamide Allergy Unknown Verified 08/06/21 10:16 Antibiotics) latex AdvReac Rash/Hives Verified 08/06/21 10:16 Review of Systems ROS Statement: Those systems with pertinent positive or pertinent negative responses have been documented in the HPI. ROS Other: All systems not noted in ROS Statement are negative. Constitutional: Reports: chills. Denies: fever ENT: Denies: ear pain, throat pain Respiratory: Denies: cough, dyspnea Cardiovascular: Denies: chest pain, palpitations Gastrointestinal: Denies: nausea, vomiting Skin: Reports: other (Abscess) Neurological: Denies: headache, weakness Past Medical History Past Medical History: Asthma, Chest Pain / Angina, Fibromyalgia, GERD/Reflux, Hearing Disorder / Deafness, Seizure Disorder Additional Past Medical History / Comment(s): MENIERES/LEGALLY BLIND/DEAFNESS LT EAR/DIFF HEARING RT/RT HEARING AID/HYPOGLYCEMIA/MIGRAINE/POOR CIRCULATION/VARICOSE VIENS/HYPOKALEMIA/TACHYCARDIA/SINUS PROBLEMS/IRRITABLE BOWEL SYNDROME/HIATALHERNIA. Adrenal insufficiency/ kelby's dis, thyroid issues History of Any Multi-Drug Resistant Organisms: None Reported Past Surgical History: Ear Surgery Additional Past Surgical History / Comment(s): SHUNT TO RT SIDE OF HEAD D/T HYDROCEPHALUS/BILAT CATARACT REMOVED, EGD/COLONOSCOPY Past Anesthesia/Blood Transfusion Reactions: Previous Problems w/ Anesthesia, Motion Sickness Past Psychological History: Anxiety, Depression Smoking Status: Never smoker Past Alcohol Use History: None Reported Past Drug Use History: None Reported - Past Family History Father Family Medical History: Coronary Artery Disease (CAD) Additional Family Medical History / Comment(s): Paternal aunt and paternal cousin had breast cancer. Paternal grandmother had ovarian cancer. Paternal cousin had endometriosis. Mother Family Medical History: Unable to Obtain General Exam Limitations: no limitations General appearance: alert, in distress Respiratory exam: Present: normal lung sounds bilaterally. Absent: respiratory distress, wheezes, rales, rhonchi, stridor Cardiovascular Exam: Present: regular rate, normal rhythm, normal heart sounds. Absent: systolic murmur, diastolic murmur, rubs, gallop, clicks GI/Abdominal exam: Present: soft, normal bowel sounds. Absent: distended Neurological exam: Present: alert, oriented X3, CN II-XII intact Psychiatric exam: Present: normal affect, normal mood Skin exam: Present: other (Erythema on the left lower abdomen measuring approximately 5 x 3 cm with a centralized area of induration measuring approximately 2 x 2 cm ) Course Vital Signs 08/06/21 10:13 Temperature 97.8 F Pulse Rate 78 Respiratory 16 Rate Blood Pressure 122/74 O2 Sat by Pulse 96 Oximetry Procedures - Incision & Drainage Consent Obtained: verbal consent Indication: Abscess Site: abdomen (left lower abdomen) Size (cm): 3 I&D Cleaning Method: Alcohol Wipe I&D Drainage Obtained: Blood Culture Obtained?: No Patient Tolerated Procedure: well Medical Decision Making - Medical Decision Making Bedside US used to evaluate for fluid collection, which revealed a possible collection 1.5cm deep. Needle aspiration revealed sanguineous fluid. Incision made, with only sanguineous fluid expressed. No culture obtained due to lack of purulent fluid. Given that the abscess has been draining and there is now a track in the abscess, will discharge the patient home in stable condition. She is on broad spectrum antibiotics, will avoid changing medications at this point and see how she does now that an incision was made which should promote further drainage. Skin marker used around the area of erythema. Patient advised to continue antibiotics as prescribed and apply warm compresses. Return precautions reviewed in depth, the patient is instructed to return to the emergency department if she experiences worsening pain, if the erythema moves past the area marked, or if she developes fevers. Patient verbalized understanding. Disposition Clinical Impression: Cellulitis Disposition: HOME SELF-CARE Instructions (If sedation given, give patient instructions): Abscess (ED), Cellulitis (ED) Additional Instructions: Return to the emergency department if redness spreads outside of the area marked, you develop fevers, or have worsening pain. Apply warm compresses and continue antibiotics as prescribed. Is patient prescribed a controlled substance at d/c from ED?: No Referrals: Ibrahima Smith DO [Primary Care Provider] - 1-2 days
[2021-08-06 12:29] VITALS: BP 124/67; PULSE 60
== END 2021-08-06 12:29 | disposition home or self-care (01) ==
LOC: EC 10:10
DX: L03.90 Cellulitis, unspecified (principal); J45.909 Unspecified asthma, uncomplicated; Z91.040 Latex allergy status; K21.9 Gastro-esophageal reflux disease without esophagitis; Z79.83 Long term (current) use of bisphosphonates; Z91.041 Radiographic dye allergy status; Z88.8 Allergy status to other drugs, medicaments and biological substances; Z88.4 Allergy status to anesthetic agent; Z88.9 Allergy status to unspecified drugs, medicaments and biological substances; Z88.2 Allergy status to sulfonamides; H91.93 Unspecified hearing loss, bilateral

== ENCOUNTER → 2021-08-29 | Outpatient (CLI) | payer MEDICARE, OTHER ==
[2021-08-29 15:52] LABS: Basophils # (A) 0.06 X 10*3/uL (0.00-0.10); Basophils % (A) 0.9 %; Eosinophils # (A) 0.24 X 10*3/uL (0.04-0.35); Eosinophils % (A) 3.5 %; HCT 43.9 % (37.2-46.3); HGB 13.6 g/dL (12.0-15.0); Immature Grans, Automated 0.3 %; Lymphocytes # (A) 3.13 X 10*3/uL (0.90-5.00); Lymphocytes % (A) 46.2 %; MCH 30.6 pg (27.0-32.0); MCV 98.9 fL (80.0-97.0); Mean Platelet Volume 12.4 fL (9.5-12.2); Monocytes # (A) 0.65 X 10*3/uL (0.20-1.00); Monocytes % (A) 9.6 %; NRBC Per 100 WBC 0 /100 WBCS (0.0-0.0); Neutrophils # (A) 2.68 X 10*3/uL (1.80-7.70); Neutrophils % (A) 39.5 %; Platelet Count 205 X 10*3/uL (140-440); RBC 4.44 X 10*6/uL (4.10-5.20); RDW 14.2 % (11.5-14.5); WBC 6.78 X 10*3/uL (4.50-10.00)
[2021-08-29 16:55] LABS: Appearance,Urine Cloudy (Clear); Bilirubin,Urine Small (Negative); Blood,Urine Large (Negative); Color,Urine Dark Yellow (Yellow); Ketones,Urine Negative (Negative); Leukocyte Esterase,Urine Trace (Negative); Nitrite,Urine Negative (Negative); PH, Urine 5.5 (5.0-8.0); Protein,Urine Trace (Negative); Specific Gravity,Urine 1.029 (1.001-1.030)
[2021-08-29 16:56] LABS: Bacteria,Urine Trace /HPF (None Seen); Calcium Oxalate Crystals,Urine Present /LPF (None Seen); RBC,Urine 51-100 /HPF (0-2); WBC,Urine 0-5 /HPF (0-5)
[2021-08-29 19:48] LABS: Chol/HDL Ratio 3.45 Ratio; LDL Cholesterol,Calculated 70.8 mg/dL (0.0-131.0)
[2021-08-29 19:54] LABS: Hepatitis A Antibody IgM Nonreactive (Nonreactive); Hepatitis B Core IgM Nonreactive (Nonreactive); Hepatitis B Surface Antigen Nonreactive (Nonreactive); Hepatitis C IgG Antibody Nonreactive (Nonreactive)
[2021-08-29 20:14] LABS: ALT 57 U/L (8-44); AST 44 U/L (13-35); African American GFR (CKD) 76.5 (60.0-200.0); Albumin 4.1 g/dL (3.8-4.9); Albumin/Globulin Ratio 1.47 (1.60-3.17); Alkaline Phosphatase 66 U/L (41-126); BUN/Creat Ratio 17.88 Ratio (12.00-20.00); Blood Urea Nitrogen 17.7 mg/dL (9.0-27.0); Calcium 9.2 mg/dL (8.7-10.3); Carbon Dioxide 19.8 mmol/L (20.0-27.5); Chloride 104 mmol/L (96-109); Globulin 2.8 g/dL (1.6-3.3); Glucose 88 mg/dL (70-110); Potassium 4.3 mmol/L (3.5-5.5); Sodium 138 mmol/L (135-145); Total Protein 6.9 g/dL (6.2-8.2)
[2021-08-30 05:29] LABS: HIV 2 AB Non-Reactive (Non-Reactive); HIV AB P24 Non-Reactive (Non-Reactive); HIV P24 AG Non-Reactive (Non-Reactive)
== END | disposition home or self-care (01) ==
LOC: LABWHC1 09:06
PROVIDERS: ATTEND Nurse Practitioner Family
DX: Z76.89 Persons encountering health services in other specified circumstances (principal); Z11.59 Encounter for screening for other viral diseases; R79.89 Other specified abnormal findings of blood chemistry; E66.9 Obesity, unspecified
CPT/HCPCS: 36415; 80053; 80061; 80074; 81001; 83036; 84443; 85025; 86803; 87086; 87390

== ENCOUNTER → 2021-09-27 | Outpatient (CLI) | payer MEDICARE, OTHER ==
[2021-09-27 14:41] LABS: Basophils # (A) 0.05 X 10*3/uL (0.00-0.10); Basophils % (A) 0.7 %; Eosinophils # (A) 0.18 X 10*3/uL (0.04-0.35); Eosinophils % (A) 2.7 %; HCT 45.7 % (37.2-46.3); HGB 13.9 g/dL (12.0-15.0); Immature Grans, Automated 0.6 %; Lymphocytes # (A) 1.73 X 10*3/uL (0.90-5.00); Lymphocytes % (A) 25.9 %; MCHC 30.4 g/dL (32.0-37.0); MCV 98.7 fL (80.0-97.0); Mean Platelet Volume 12.5 fL (9.5-12.2); Monocytes # (A) 0.67 X 10*3/uL (0.20-1.00); NRBC Per 100 WBC 0 /100 WBCS (0.0-0.0); Neutrophils % (A) 60.1 %; Platelet Count 171 X 10*3/uL (140-440); RBC 4.63 X 10*6/uL (4.10-5.20); RDW 14.1 % (11.5-14.5); WBC 6.67 X 10*3/uL (4.50-10.00)
[2021-09-27 21:23] LABS: ALT 51 U/L (8-44); AST 36 U/L (13-35); African American GFR (CKD) 67.3 (60.0-200.0); Albumin 4.2 g/dL (3.8-4.9); Albumin/Globulin Ratio 1.37 (1.60-3.17); Alkaline Phosphatase 63 U/L (41-126); BUN/Creat Ratio 21.55 Ratio (12.00-20.00); Blood Urea Nitrogen 23.7 mg/dL (9.0-27.0); Calcium 9.5 mg/dL (8.7-10.3); Chloride 107 mmol/L (96-109); Chol/HDL Ratio 3.36 Ratio; Globulin 3.1 g/dL (1.6-3.3); Glucose 87 mg/dL (70-110); LDL Cholesterol,Calculated 69.7 mg/dL (0.0-131.0); Non-African American GFR(CKD) 58.1 (60.0-200.0); Potassium 3.7 mmol/L (3.5-5.5); Sodium 143 mmol/L (135-145); Total Protein 7.3 g/dL (6.2-8.2)
== END | disposition home or self-care (01) ==
LOC: LABWHC1 08:29
PROVIDERS: ATTEND Nurse Practitioner
DX: E23.0 Hypopituitarism (principal); E27.40 Unspecified adrenocortical insufficiency
CPT/HCPCS: 36415; 80053; 80061; 82024; 82306; 82533; 82607; 84305; 84439; 84443; 85025

== ENCOUNTER → 2021-10-11 | Outpatient (CLI) | payer MEDICARE, OTHER ==
--- NOTE | 2021-10-11 08:54 | US ---
EXAMINATION TYPE: US abdomen comp/pelvis limited DATE OF EXAM: 10/11/2021 COMPARISON: CT 2017 CLINICAL HISTORY: R7989 LFT ELEVATION/R944 ABN REAL FUNCTION/R222/M. Abnormal LFT's, ABD pain, palpa ble lumps superficial abdomen EXAM MEASUREMENTS: Liver Length: 20.1 cm Gallbladder Wall: 0.2 cm CBD: 0.4 cm Spleen: 12.0 cm Right Kidney: 9.5 x 4.2 x 4.9 cm Left Kidney: 9.4 x 5.2 x 4.6 cm Morbidly obese pt, difficult to scan/penetrate, pt unable to tolerate much probe pressure from tech nologist Pancreas: wnl, tail obscured by overlying bowel gas Liver: Enlarge, heterogeneous, difficult to penetrate Gallbladder: wnl CBD: wnl Spleen: wnl Right Kidney: Visualized portions appeared wnl Left Kidney: Visualized portions appeared wnl Upper IVC: wnl Abd Aorta: wnl Bladder: wnl Bilateral Jets Seen Yes Please note that pt's superficial palpable areas were scanned- no abnormality could be appreciated at this time Suboptimal study. Diffuse fatty infiltration of the liver is redemonstrated. IMPRESSION: As above. Persistent diffuse fatty infiltration of liver. No obvious mass at the palpable abnormality superficial abdomen towards end of study.
== END | disposition home or self-care (01) ==
LOC: RADUSWWP 08:03
PROVIDERS: ATTEND Internal Medicine
DX: R79.89 Other specified abnormal findings of blood chemistry (principal)
CPT/HCPCS: 76700; 76857

== ENCOUNTER → 2021-11-15 | Outpatient (CLI) | payer MEDICARE, OTHER ==
--- NOTE | 2021-11-15 10:38 | US ---
EXAMINATION TYPE: US pelvic complete DATE OF EXAM: 11/15/2021 COMPARISON: 03/01/2020 CLINICAL HISTORY: R10.2 PELVIC PAIN,. Follow up ovarian cyst TECHNIQUE: . Transabdominal sonographic images of the pelvis were acquired. Transvaginal sonographi c images were medically necessary to better assess the following anatomy: endometrium and ovaries Date of LMP: 11/12/2021 EXAM MEASUREMENTS: Uterus: 6.5 x 2.9 x 4.2 cm Endometrial Stripe: 0.6 cm Right Ovary: 3.6 x 1.6 x 1.9 cm Left Ovary: 2.1 x 1.5 x 1.8 cm Difficult and limited study due to patient body habitus 1. Uterus: anteverted, 1.8 x 1.2 x 1.2cm hypoechoic area posterior myometrium, multiple nabothian cy sts 2. Endometrium: appears wnl 3. Right Ovary: 1.6cm hypoechoic area 4. Left Ovary: wnl 5. Bilateral Adnexa: wnl 6. Posterior cul-de-sac: wnl IMPRESSION: 1. The previously noted left ovarian cyst is no longer identified. 2. Findings are suggestive of a uterine fibroid measuring 1.8 cm within the posterior myometrium. 3. There is a 1.6 cm hypoechoic area within the right ovary which is nonspecific. Recommend a 4-6 wee k follow-up to resolution
--- NOTE | 2021-11-15 13:33 | P.PN ---
Progress Note - Text Progress Note Date: 11/15/21 OUTPATIENT FOLLOW-UP NOTE TEST(S)/RESULTS: Pelvic ultrasound done on 11/15/2021 shows resolution of the left ovarian cyst seen on her previous ultrasound. There is a small uterine fibroid measuring 1.8 cm and a small 1.6 hypoechoic area in the right ovary. METHOD OF NOTIFICATION: A message with these results was left on the patient's voicemail. PATIENT COMMENTS: DIAGNOSIS: Small, probable physiologic ovarian cysts that are transient. Small uterine fibroid. I doubt these are the cause for her pelvic pains. DISCUSSION: PLAN: She will return when she is due for her well woman examination and we can determine if any further workup is needed.
== END | disposition home or self-care (01) ==
LOC: RADUSWWP 09:23
PROVIDERS: ATTEND Obstetrics & Gynecology
DX: R10.31 Right lower quadrant pain (principal); R10.32 Left lower quadrant pain
CPT/HCPCS: 76830; 76856

== ENCOUNTER 2022-06-07 00:11 | Emergency (ER) | payer MEDICARE, OTHER ==
[2022-06-07] MEDS ORDERED: SODIUM CHLORIDE 0.9% 1,000 ML IV STA (00:45)
[2022-06-07] MEDS ORDERED: ONDANSETRON 4 MG/2 ML VIAL IVP STA (00:45)
[2022-06-07] MEDS ORDERED: MORPHINE SULFATE 2 MG/ML SYRINGE IVP STA (00:45)
[2022-06-07 01:03] LABS: Basophils # (A) 0.1 k/uL (0-0.2); Basophils % (A) 1 %; Eosinophils # (A) 0.2 k/uL (0-0.7); Eosinophils % (A) 3 %; HGB 14.4 gm/dL (11.4-16.0); Hypochromasia Slight; Lymphocytes # (A) 3.2 k/uL (1.0-4.8); Lymphocytes % (A) 42 %; MCH 31.9 pg (25.0-35.0); MCHC 33.5 g/dL (31.0-37.0); MCV 95.2 fL (80.0-100.0); Mean Platelet Volume 10.5; Monocytes # (A) 0.4 k/uL (0-1.0); Monocytes % (A) 5 %; Neutrophils # (A) 3.5 k/uL (1.3-7.7); Neutrophils % (A) 47 %; Platelet Count 181 k/uL (150-450); RBC 4.51 m/uL (3.80-5.40); RDW 13.4 % (11.5-15.5); WBC 7.5 k/uL (3.8-10.6)
[2022-06-07 01:21] LABS: INR 0.9 (<1.2); Partial Thromboplastin Time 24.6 sec (22.0-30.0); Prothrombin Time 9.8 sec (9.0-12.0)
--- NOTE | 2022-06-07 01:43 | US ---
EXAMINATION TYPE: US transvaginal DATE OF EXAM: 06/07/2022 COMPARISON: 11/15/21 CLINICAL HISTORY: heavy vaginal bleeding, recent uterine ablation. heavy menstrual period. D&C done i april and a polyp was removed TECHNIQUE: Transvaginal sonographic images of the pelvis were acquired Date of LMP: 06/04/22 EXAM MEASUREMENTS: Uterus: 7.5 x 4.3 x 3.7 cm Endometrial Stripe: 0.5 cm Right Ovary: 2.7 x 2.0 x 1.7 cm Left Ovary: 3.1 x 2.3 x 1.7 cm 1. Uterus: Anteverted wnl 2. Endometrium: wnl 3. Right Ovary: wnl 4. Left Ovary: Dominant follicle measuring 2.0 x 1.8 x 1.6cm Spectral, color and waveform doppler imaging shows good arterial and venous flow within the ovaries ; there is no evidence for ovarian torsion. 5. Bilateral Adnexa: wnl 6. Posterior cul-de-sac: wnl IMPRESSION: 1. No evidence for acute process. 2. Endometrium within normal limits for thickness. 3. Appropriate arterial and venous spectral waveforms to the ovaries.
[2022-06-07 01:44] LABS: Albumin 4.4 g/dL (3.5-5.0); Calcium 8.9 mg/dL (8.4-10.2); Potassium 3.6 mmol/L (3.5-5.1); Total Bilirubin 0.3 mg/dL (0.2-1.3); Total Protein 7.7 g/dL (6.3-8.2)
--- NOTE | 2022-06-07 02:42 | ED ---
General Adult HPI - General Chief complaint: Vaginal Bleeding Stated complaint: Might need a blood transfusion Time Seen by Provider: 06/07/22 00:23 Source: patient, RN notes reviewed Mode of arrival: ambulatory Limitations: no limitations - History of Present Illness Initial comments: 52-year-old female presents to the emergency Department with complaints of heavy vaginal bleeding, onset Saturday. Patient states she had a uterine ablation recently and this is her first period since. Reports bleeding began on Saturday and describes it as bright red. Denies any clots. Complains of mild abdominal cramping, but is concerned that she is losing too much blood and may need of blood transfusion. Patient was prescribed Lysteda/TXA by her OB-Punch Out Crew Member and just began taking that. Reports mild dizziness with position change. Denies headache, chest pain, palpitations, nausea, vomiting, diarrhea, or dysuria. - Related Data Home Medications Medication Instructions Recorded Confirmed Cetirizine HCl [Zyrtec] 10 mg PO DAILY 10/14/13 05/15/22 Esomeprazole Magnesium [NexIUM] 40 mg PO DAILY 10/14/13 05/15/22 Folic Acid 1 mg PO DAILY 10/14/13 05/15/22 Meclizine [Antivert] 1 caplet PO BID 10/14/13 05/15/22 Metoprolol Succinate [Toprol XL] 50 mg PO DAILY 10/14/13 05/15/22 Multivitamin [Multivitamins] 1 each PO DIRECTED 10/14/13 05/15/22 [place] Oil 1 caplet PO BID 10/14/13 05/15/22 Tiotropium 18 Mcg/Puff [Spiriva] 1 puff INHALATION DIRECTED 10/14/13 05/15/22 Topiramate [Topamax] 100 mg PO BID 10/14/13 05/15/22 Triamterene-Hctz 37.5-25Mg 1 each PO DAILY 10/14/13 05/15/22 [Dyazide 37.5-25 Capsule] Xolair 225 mg SQ DIRECTED 10/14/13 05/15/22 Zafirlukast [Accolate] 20 mg PO BID 10/14/13 05/15/22 clonazePAM [KlonoPIN] 1 mg PO DAILY 10/14/13 05/15/22 metFORMIN HCL [Glucophage] 500 mg PO BID 01/16/17 05/15/22 Doxycycline [Vibramycin] 100 mg PO BID 09/06/21 05/15/22 Escitalopram [Lexapro] 20 mg PO DAILY 09/06/21 05/15/22 Gabapentin [Neurontin] 300 mg PO TID 09/06/21 05/15/22 Levothyroxine Sodium 125 mcg PO DAILY 09/06/21 05/15/22 [place]-3 Fatty Acids/Fish Oil [Fish 1 each PO DAILY 09/06/21 05/15/22 Oil 1,000 mg Softgel] Potassium Chloride [Klor-Con 20] 20 meq PO BID 09/06/21 05/15/22 Somatropin [Norditropin Flexpro] 50 mg SQ HS 09/06/21 05/15/22 Levocetirizine Dihydrochloride 5 mg PO DIRECTED 02/21/22 05/15/22 [Xyzal] Tirzepatide [Mounjaro] 2.5 mg SQ WEEKLY 05/02/22 05/15/22 Previous Rx's Medication Instructions Recorded Triamcinolone 0.1% Cream [Kenalog 1 applicatio TOPICAL BID PRN #30 gm 02/03/20 0.1% Cream] hydrOXYzine HCL [Atarax] 25 mg PO TID PRN #15 tab 12/21/20 Allergies Allergy/AdvReac Type Severity Reaction Status Date / Time iodine Allergy Severe Anaphylaxis Verified 06/07/22 00:18 diltiazem HCl [From Cardizem] Allergy Rash/Hives Verified 06/07/22 00:18 levetiracetam [From Keppra] Allergy Rash/Hives Verified 06/07/22 00:18 midodrine HCl Allergy Unknown Verified 06/07/22 00:18 [From ProAmatine] paroxetine HCl [From Paxil] Allergy Rash/Hives Verified 06/07/22 00:18 Sulfa (Sulfonamide Allergy Unknown Verified 06/07/22 00:18 Antibiotics) latex AdvReac Rash/Hives Verified 06/07/22 00:18 Review of Systems ROS Statement: Those systems with pertinent positive or pertinent negative responses have been documented in the HPI. ROS Other: All systems not noted in ROS Statement are negative. Past Medical History Past Medical History: Asthma, Chest Pain / Angina, Fibromyalgia, GERD/Reflux, Hearing Disorder / Deafness, Seizure Disorder Additional Past Medical History / Comment(s): MENIERES/LEGALLY BLIND/DEAFNESS LT EAR/DIFF HEARING RT/RT HEARING AID/HYPOGLYCEMIA/MIGRAINE/POOR CIRCULATIO N/VARICOSE VIENS/HYPOKALEMIA/TACHYCARDIA/SINUS PROBLEMS/IRRITABLE BOWEL SYNDROME/HIATALHERNIA. Adrenal insufficiency/ kelby's dis, thyroid issues History of Any Multi-Drug Resistant Organisms: None Reported Past Surgical History: Ear Surgery Additional Past Surgical History / Comment(s): SHUNT TO RT SIDE OF HEAD D/T HYDR OCEPHALUS/BILAT CATARACT REMOVED, EGD/COLONOSCOPY Past Anesthesia/Blood Transfusion Reactions: Previous Problems w/ Anesthesia, Motion Sickness Past Psychological History: Anxiety, Depression Smoking Status: Never smoker Past Alcohol Use History: None Reported Past Drug Use History: None Reported - Past Family History Father Family Medical History: Coronary Artery Disease (CAD) Additional Family Medical History / Comment(s): Paternal aunt and paternal cousin had breast cancer. Paternal grandmother had ovarian cancer. Paternal cousin had endometriosis. Mother Family Medical History: Unable to Obtain General Exam Limitations: no limitations General appearance: alert, in no apparent distress ENT exam: Present: normal exam, normal oropharynx, mucous membranes moist Respiratory exam: Present: normal lung sounds bilaterally. Absent: respiratory distress, wheezes, rales, rhonchi, stridor, chest wall tenderness Cardiovascular Exam: Present: regular rate, normal rhythm, normal heart sounds. Absent: systolic murmur, diastolic murmur, rubs, gallop, clicks GI/Abdominal exam: Present: soft, normal bowel sounds. Absent: distended, tenderness, guarding, rebound, rigid External exam: Present: normal external exam Neurological exam: Present: alert, oriented X3 Psychiatric exam: Present: flat affect Skin exam: Present: warm, dry, intact, normal color. Absent: rash Course Vital Signs 06/07/22 06/07/22 06/07/22 00:14 00:18 03:00 Temperature 97.1 F L 98.4 F Pulse Rate 75 72 71 Respiratory 18 18 16 Rate Blood Pressure 102/65 114/58 104/78 O2 Sat by Pulse 96 98 97 Oximetry - Reevaluation(s) Reevaluation #1: 06/07/22 02:40 Patient updated on results. Questions answered. Discussed follow-up care and return parameters. Patient verbalizes understanding. Medical Decision Making - Medical Decision Making This is a 52-year-old female with recent endometrial ablation who presents to the emergency Department with complaints of heavy vaginal bleeding and concerns that she may require a blood transfusion. Upon exam, patient is well-appearing and in no acute distress. Vital signs are stable. Abdomen is soft and non tender. She is experiencing right red vaginal bleeding with no clots. Ultrasound was obtained and was unremarkable. Laboratory studies show stable hemoglobin (14.4) and hematocrit (43.0). No leukocytosis. Patient was prescribed Lysteda by her flexographic press set up operator and just began taking it. She is encour aged to continue taking this medication. Encouraged Tylenol or Motrin if needed for abdominal cramping discomfort. Encouraged follow-up with her flexographic press set up operator for a recheck in 48 hours if needed. Return parameters were discussed in detail. Patient verbalizes understanding and agrees with this plan. Attending: Nataly. - Lab Data Result diagrams: 06/07/22 00:49 06/07/22 00:49 Lab Results 06/07/22 06/07/22 06/07/22 Range/Units 00:49 00:49 00:49 WBC 7.5 (3.8-10.6) k/uL RBC 4.51 (3.80-5.40) m/uL Hgb 14.4 (11.4-16.0) gm/dL Hct 43.0 (34.0-46.0) % MCV 95.2 (80.0-100.0) fL MCH 31.9 (25.0-35.0) pg MCHC 33.5 (31.0-37.0) g/dL RDW 13.4 (11.5-15.5) % Plt Count 181 (150-450) k/uL MPV 10.5 Neutrophils % 47 % Lymphocytes % 42 % Monocytes % 5 % Eosinophils % 3 % Basophils % 1 % Neutrophils # 3.5 (1.3-7.7) k/uL Lymphocytes # 3.2 (1.0-4.8) k/uL Monocytes # 0.4 (0-1.0) k/uL Eosinophils # 0.2 (0-0.7) k/uL Basophils # 0.1 (0-0.2) k/uL Hypochromasia Slight PT 9.8 (9.0-12.0) sec INR 0.9 (<1.2) APTT 24.6 (22.0-30.0) sec Sodium 139 (137-145) mmol/L Potassium 3.6 (3.5-5.1) mmol/L Chloride 106 (98-107) mmol/L Carbon Dioxide 24 (22-30) mmol/L Anion Gap 9 mmol/L BUN 16 (7-17) mg/dL Creatinine 0.89 (0.52-1.04) mg/dL Est GFR (CKD-EPI)AfAm 86 (>60 ml/min/1.73 sqM) Est GFR (CKD-EPI)NonAf 75 (>60 ml/min/1.73 sqM) Glucose 90 (74-99) mg/dL Calcium 8.9 (8.4-10.2) mg/dL Total Bilirubin 0.3 (0.2-1.3) mg/dL AST 31 (14-36) U/L ALT 34 (4-34) U/L Alkaline Phosphatase 66 (38-126) U/L Total Protein 7.7 (6.3-8.2) g/dL Albumin 4.4 (3.5-5.0) g/dL Blood Type Blood Type Recheck Bld Type Recheck Status Antibody Screen Spec Expiration Date 06/07/22 Range/Units 01:00 WBC (3.8-10.6) k/uL RBC (3.80-5.40) m/uL Hgb (11.4-16.0) gm/dL Hct (34.0-46.0) % MCV (80.0-100.0) fL MCH (25.0-35.0) pg MCHC (31.0-37.0) g/dL RDW (11.5-15.5) % Plt Count (150-450) k/uL MPV Neutrophils % % Lymphocytes % % Monocytes % % Eosinophils % % Basophils % % Neutrophils # (1.3-7.7) k/uL Lymphocytes # (1.0-4.8) k/uL Monocytes # (0-1.0) k/uL Eosinophils # (0-0.7) k/uL Basophils # (0-0.2) k/uL Hypochromasia PT (9.0-12.0) sec INR (<1.2) APTT (22.0-30.0) sec Sodium (137-145) mmol/L Potassium (3.5-5.1) mmol/L Chloride (98-107) mmol/L Carbon Dioxide (22-30) mmol/L Anion Gap mmol/L BUN (7-17) mg/dL Creatinine (0.52-1.04) mg/dL Est GFR (CKD-EPI)AfAm (>60 ml/min/1.73 sqM) Est GFR (CKD-EPI)NonAf (>60 ml/min/1.73 sqM) Glucose (74-99) mg/dL Calcium (8.4-10.2) mg/dL Total Bilirubin (0.2-1.3) mg/dL AST (14-36) U/L ALT (4-34) U/L Alkaline Phosphatase (38-126) U/L Total Protein (6.3-8.2) g/dL Albumin (3.5-5.0) g/dL Blood Type A Positive Blood Type Recheck No Previous Record Bld Type Recheck Status CABO Indicated Antibody Screen NEGATIVE Spec Expiration Date 06/10/20222299 - Radiology Data Radiology results: report reviewed, image reviewed Transvaginal ultrasound was obtained. Report was reviewed in its entirety. Impression per Dr. Peters is #1. No evidence for acute process. #2. Endometrium within normal limits for thickness. #3. Appropriate arterial and venous spectra waveforms to the ovaries. Disposition Clinical Impression: Menorrhagia with irregular cycle Disposition: HOME SELF-CARE Condition: Stable Instructions (If sedation given, give patient instructions): Menorrhagia (ED) Additional Instructions: Continue taking medication as prescribed by your flexographic press set up operator to help reduce excessive bleeding. Rest. Increase fluid intake. Call your Out Patient Therapist in the morning to schedule a follow up appointment. Return to the emergency department if you experience persistent dizziness, chest pain or shortness of breath, or worsening bleeding. Is patient prescribed a controlled substance at d/c from ED?: No Referrals: Dorys Trujillo FNPBC [Primary Care Provider] - 1-2 days Time of Disposition: 02:56
[2022-06-07 03:14] VITALS: BP 104/78; PULSE 71; RESP 16; TEMP 98.4
== END 2022-06-07 03:14 | disposition home or self-care (01) ==
LOC: EC 00:11
DX: N92.0 Excessive and frequent menstruation with regular cycle (principal); J45.909 Unspecified asthma, uncomplicated; K21.9 Gastro-esophageal reflux disease without esophagitis; F41.9 Anxiety disorder, unspecified; F32.A Depression, unspecified; Z79.899 Other long term (current) drug therapy; Z88.2 Allergy status to sulfonamides; Z91.040 Latex allergy status; Z88.8 Allergy status to other drugs, medicaments and biological substances
CPT/HCPCS: 36415; 86900; 86901; 80053; 85025; 85610; 85730; 86850; 93975; 76830; 99284; 96374; 96375; 96361; J2405; J2270

== ENCOUNTER 2023-07-10 10:06 | Emergency (ER) | payer MEDICARE, OTHER ==
[2023-07-10 10:21] VITALS: BP 106/61; PULSE 83; RESP 18; TEMP 97.9
--- NOTE | 2023-07-10 10:51 | XR ---
EXAMINATION TYPE: XR ankle complete 3 views RT, XR foot complete 3 views RT DATE OF EXAM: 07/10/2023 COMPARISON: NONE HISTORY: 53-year-old female pain after fall, injury FINDINGS: Ankle: Ankle mortise is congruent with preservation of the distal tibiofibular overlap. Talar dome is intact . There are small densities at the Achilles insertion with some overlying soft tissue swelling. Talar dome is intact. Foot: Moderate to severe degenerative change first MTP joint with a bony bunion formation. Tiny plantar vannesa l spur. No acute fracture, subluxation, or dislocation. IMPRESSION: 1. Ankle: Thickening at the Achilles insertion with subtle densities. Findings may reflect insertiona l tendinopathy. If concern for acute injury to the Achilles tendon, MRI can be performed. 2. 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 No acute osseous abnormality seen.
--- NOTE | 2023-07-10 11:06 | ED ---
Lower Extremity Injury HPI - General Chief Complaint: Extremity Injury, Lower Stated Complaint: Fall Time Seen by Provider: 07/10/23 10:25 Source: patient, RN notes reviewed Mode of arrival: ambulatory Limitations: no limitations - History of Present Illness Initial Comments: 53-year-old female presents emergency department with chief complaint of right foot and ankle pain. Patient states she did not see the curb states that she misstep. Patient states that she has right foot and ankle pain. States that hurts to ambulate no other injuries noted. Patient denies any paresthesias denies any other complaints. - Related Data Home Medications Medication Instructions Recorded Confirmed Cetirizine HCl [Zyrtec] 10 mg PO DAILY 10/14/13 07/10/23 Esomeprazole Magnesium [NexIUM] 40 mg PO DAILY 10/14/13 07/10/23 Folic Acid 1 mg PO DAILY 10/14/13 07/10/23 Meclizine [Antivert] 1 caplet PO BID 10/14/13 07/10/23 Metoprolol Succinate [Toprol XL] 50 mg PO DAILY 10/14/13 07/10/23 Multivitamin [Multivitamins] 1 each PO DIRECTED 10/14/13 07/10/23 [place] Oil 1 caplet PO BID 10/14/13 07/10/23 Topiramate [Topamax] 100 mg PO BID 10/14/13 07/10/23 Triamterene-Hctz 37.5-25Mg 1 each PO DAILY 10/14/13 07/10/23 [Dyazide 37.5-25 Capsule] Xolair 300 mg SQ DIRECTED 10/14/13 07/10/23 Zafirlukast [Accolate] 20 mg PO BID 10/14/13 07/10/23 metFORMIN HCL [Glucophage] 500 mg PO BID 01/16/17 07/10/23 Doxycycline [Vibramycin] 100 mg PO BID 09/06/21 07/10/23 Escitalopram [Lexapro] 20 mg PO DAILY 09/06/21 07/10/23 Gabapentin [Neurontin] 300 mg PO TID 09/06/21 07/10/23 Levothyroxine Sodium 125 mcg PO DAILY 09/06/21 07/10/23 [place]-3 Fatty Acids/Fish Oil [Fish 1 each PO DAILY 09/06/21 07/10/23 Oil 1,000 mg Softgel] Potassium Chloride [Klor-Con 20] 20 meq PO BID 09/06/21 07/10/23 Somatropin [Norditropin Flexpro] 50 mg SQ HS 09/06/21 07/10/23 Levocetirizine Dihydrochloride 5 mg PO DIRECTED 02/21/22 07/10/23 [Xyzal] Tirzepatide [Mounjaro] 2.5 mg SQ WEEKLY 05/02/22 07/10/23 Fluticasone/Umeclidin/Vilanter 1 puff INHALATION DAILY 04/17/23 07/10/23 [Trelegy Ellipta 100-62.5-25] Previous Rx's Medication Instructions Recorded Triamcinolone 0.1% Cream [Kenalog 1 applicatio TOPICAL BID PRN #30 gm 02/03/20 0.1% Cream] hydrOXYzine HCL [Atarax] 25 mg PO TID PRN #15 tab 12/21/20 Allergies Allergy/AdvReac Type Severity Reaction Status Date / Time iodine Allergy Severe Anaphylaxis Verified 07/10/23 10:18 diltiazem HCl [From Cardizem] Allergy Rash/Hives Verified 07/10/23 10:18 Iodinated Contrast Media Allergy Anaphylaxis Verified 07/10/23 10:18 levetiracetam [From Keppra] Allergy Rash/Hives Verified 07/10/23 10:18 midodrine HCl Allergy Unknown Verified 07/10/23 10:18 [From ProAmatine] paroxetine HCl [From Paxil] Allergy Rash/Hives Verified 07/10/23 10:18 Sulfa (Sulfonamide Allergy Unknown Verified 07/10/23 10:18 Antibiotics) latex AdvReac Rash/Hives Verified 07/10/23 10:18 Review of Systems ROS Statement: Those systems with pertinent positive or pertinent negative responses have been documented in the HPI. ROS Other: All systems not noted in ROS Statement are negative. Past Medical History Past Medical History: Asthma, Chest Pain / Angina, Fibromyalgia, GERD/Reflux, Hearing Disorder / Deafness, Seizure Disorder Additional Past Medical History / Comment(s): MENIERES/LEGALLY BLIND/DEAFNESS LT EAR/DIFF HEARING RT/RT HEARING AID/HYPOGLYCEMIA/MIGRAINE/POOR CIRCULATION/VARICOSE VIENS/HYPOKALEMIA/TACHYCARDIA/SINUS PROBLEMS/IRRITABLE BOWEL SYNDROME/HIATALHERNIA. Adrenal insufficiency/ kelby's dis, thyroid issues History of Any Multi-Drug Resistant Organisms: None Reported Past Surgical History: Ear Surgery Additional Past Surgical History / Comment(s): SHUNT TO RT SIDE OF HEAD D/T HYDROCEPHALUS/BILAT CATARACT REMOVED, EGD/COLONOSCOPY Past Anesthesia/Blood Transfusion Reactions: Previous Problems w/ Anesthesia, Motion Sickness Past Psychological History: Anxiety, Depression Smoking Status: Never smoker Past Alcohol Use History: None Reported Past Drug Use History: None Reported - Past Family History Father Family Medical History: Coronary Artery Disease (CAD) Additional Family Medical History / Comment(s): Paternal aunt and paternal cousin had breast cancer. Paternal grandmother had ovarian cancer. Paternal cousin had endometriosis. Mother Family Medical History: Unable to Obtain General Exam Limitations: no limitations General appearance: alert, in no apparent distress Head exam: Present: atraumatic, normocephalic, normal inspection Respiratory exam: Present: normal lung sounds bilaterally. Absent: respiratory distress, wheezes, rales, rhonchi, stridor Cardiovascular Exam: Present: regular rate, normal rhythm, normal heart sounds. Absent: systolic murmur, diastolic murmur, rubs, gallop, clicks Extremities exam: Present: other (Right ankle there is tenderness on the lateral malleoli region, proximal foot region) Neurological exam: Present: alert Skin exam: Present: warm, dry, intact, normal color. Absent: rash Course Vital Signs 07/10/23 10:15 Temperature 97.9 F Pulse Rate 83 Respiratory 18 Rate Blood Pressure 106/61 O2 Sat by Pulse 96 Oximetry Medical Decision Making - Medical Decision Making Was pt. sent in by a medical professional or institution (, PA, MULTIMEDIA TEACHER, urgent care, hospital, or snf...) When possible be specific @ -No Did you speak to anyone other than the patient for history (EMS, parent, family, police, friend...)? What history was obtained from this source @ -No Did you review nursing and triage notes (agree or disagree)? Why? @ -I reviewed and agree with nursing and triage notes Were old charts reviewed (outside hosp., previous admission, EMS record, old EKG, old radiological studies, urgent care reports/EKG's, snf records)? Report findings @ -No old charts were reviewed Differential Diagnosis (chest pain, altered mental status, abdominal pain women, abdominal pain men, vaginal bleeding, weakness, fever, dyspnea, syncope, headache, dizziness, GI bleed, back pain, seizure, CVA, palpatations, mental health, musculoskeletal)? @ -[Foot pain, foot fracture, ankle sprain ankle fracture EKG interpreted by me (3pts min.). @ -None X-rays interpreted by me (1pt min.). @ -[X-ray right foot no acute fracture or dislocation there are degenerative changes X-ray right ankle no acute fracture or dislocation CT interpreted by me (1pt min.). @ -[None done U/S interpreted by me (1pt. min.). @ -None done What testing was considered but not performed or refused? (CT, X-rays, U/S, labs)? Why? @ -None What meds were considered but not given or refused? Why? @ -None Did you discuss the management of the patient with other professionals (professionals i.e. , PA, MULTIMEDIA TEACHER, lab, RT, psych nurse, social welfare clerk, brake tester, teacher, antisubmarine weapons officer, showcase trimmer)? Give summary @ -No Was smoking cessation discussed for >3mins.? @ -No Was critical care preformed (if so, how long)? @ -No Were there social determinants of health that impacted care today? How? (Homelessness, low income, unemployed, alcoholism, drug addiction, transportation, low edu. Level, literacy, decrease access to med. care, correction, rehab)? @ -No Was there de-escalation of care discussed even if they declined (Discuss DNR or withdrawal of care, Hospice)? DNR status @ -No What co-morbidities impacted this encounter? (DM, HTN, Smoking, COPD, CAD, Cancer, CVA, ARF, Chemo, Hep., AIDS, mental health diagnosis, sleep apnea, morbid obesity)? @ -None Was patient admitted / discharged? Hospital course, mention meds given and route, prescriptions, significant lab abnormalities, going to OR and other pertinent info. @ -[Discharge patient has a right ankle sprain, patient was placed in ankle stirrup brace will follow-up with her orthopedic physician return brands were discussed. Undiagnosed new problem with uncertain prognosis? @ -No Drug Therapy requiring intensive monitoring for toxicity (Heparin, Nitro, Insulin, Cardizem)? @ -No Were any procedures done? @ -No Diagnosis/symptom? @ -[Right ankle sprain Acute, or Chronic, or Acute on Chronic? @ -Acute Uncomplicated (without systemic symptoms) or Complicated (systemic symptoms)? @ -[Uncomplicated Side effects of treatment? @ -[No Exacerbation, Progression, or Severe Exacerbation? @ -No Poses a threat to life or bodily function? How? (Chest pain, [place], [place], pneumonia, PE, COPD, DKA, ARF, appy, cholecystitis, CVA, Diverticulitis, Homicidal, Suicidal, threat to staff... and all critical care pts) @ -No Disposition Clinical Impression: Right ankle sprain Disposition: HOME SELF-CARE Condition: Stable Instructions (If sedation given, give patient instructions): Ankle Sprain (ED) Additional Instructions: Please return to the Emergency Department if symptoms worsen or any other concerns. Is patient prescribed a controlled substance at d/c from ED?: No Referrals: Nonstaff,Physician [Primary Care Provider] - 1-2 days Time of Disposition: 11:06
== END 2023-07-10 12:26 | disposition home or self-care (01) ==
LOC: EC 10:06
DX: S93.401A Sprain of unspecified ligament of right ankle, initial encounter (principal); J45.909 Unspecified asthma, uncomplicated; K21.9 Gastro-esophageal reflux disease without esophagitis; Z86.59 Personal history of other mental and behavioral disorders; Z79.51 Long term (current) use of inhaled steroids; Z79.899 Other long term (current) drug therapy; Z91.041 Radiographic dye allergy status; Z88.2 Allergy status to sulfonamides; Z91.040 Latex allergy status; Z88.8 Allergy status to other drugs, medicaments and biological substances; W10.1XXA Fall (on)(from) sidewalk curb, initial encounter
CPT/HCPCS: 73610; 73630; 99283; L4350